=== PATIENT | male | born 1950 | race African-American/Black ===

== ENCOUNTER 2018-12-21 09:58 | Inpatient (IN) | payer MEDICARE ==
[~2018-12-21] VITALS: Ht 180.3 cm; Wt 91.2 kg
[~2018-12-21 09:58] MED LIST: ATOR40TA52 PO; GAB100C PO; PANT40T PO; PRIM50TA5 PO; SERT-274 PO; TRIATAB3 PO
[2018-12-21 11:09] LABS: Basophils # (auto) 0 uL; Basophils % (auto) 0.3 % (0.0-2.0); Eosinophils # (auto) 0 uL; Eosinophils % (auto) 0.1 % (0.0-7.0); Hematocrit 47.8 % (41.0-53.0); Hemoglobin 15.6 g/dL (13.5-17.5); Lymphocytes # (auto) 4.6 uL; Lymphocytes % (auto) 25.4 % (10.0-50.0); Mean Corpuscular Hemoglobin 30.5 pg (28.0-32.0); Mean Corpuscular Hgb Conc. 32.7 g/dL (32.0-36.0); Mean Corpuscular Volume 93.1 fL (80.0-100.0); Monocytes # (auto) 0.4 uL; Monocytes % (auto) 2.3 % (0.0-12.0); Neutrophils # (auto) 12.9 uL; Neutrophils % (auto) 71.9 % (37.0-80.0); Nucleated Red Blood Cells % 0.2 %; Platelet Count (auto) 279 10^3/uL (140-450); Red Blood Cells 5.13 10^6/uL (4.5-5.90); Red Cell Distribution Width 14.4 % (11.8-14.3)
[2018-12-21 11:22] LABS: Anion Gap 11 (5-15); Blood Urea Nitrogen 30 mg/dL (7-18); Calcium 9.6 mg/dL (8.5-10.1); Carbon Dioxide 23 mmol/L (21-32); Chloride 103 mmol/L (98-107); Glucose 203 mg/dL (74-106); Potassium 4.7 mmol/L (3.5-5.1); Sodium 137 mmol/L (136-145)
[2018-12-21 11:28] LABS: Alanine Aminotransferase 30 U/L (16-61); Alkaline Phosphatase 153 U/L (45-117); Aspartate Aminotransferase 17 U/L (15-37); BUN/Creatinine Ratio 18.9; Bilirubin, Total 0.8 mg/dL (0.2-1.0); GFR African American 56 mL/min; GFR Non-African American 47 mL/min; Total Protein 8.5 g/dL (6.4-8.2)
[2018-12-21 11:34] LABS: INR 0.98 (0.9-1.15)
[2018-12-21] MEDS ORDERED: ONDANSETRON HCL 4 MG/2 ML VIAL ONE (11:55)
[2018-12-21] MEDS ORDERED: ONDANSETRON HCL 4 MG/2 ML VIAL IV ONE (12:15)
[2018-12-21 12:18] LABS: Urine Bacteria NONE SEEN /hpf (None Seen); Urine Blood 3+ /uL (Negative); Urine Specific Gravity 1.019 (1.001-1.035); Urine WBC 1915 /hpf (0 - 3); Urine WBC Clumps PRESENT /hpf (None Seen)
[2018-12-21] MEDS ORDERED: SODIUM CHLORIDE 0.9% 1,000 ML IV SCH (12:59)
[2018-12-21] MEDS ORDERED: DEXTROSE (50%) 50ML SYRG IV PRN (13:00)
[2018-12-21] MEDS ORDERED: SODIUM CHLORIDE 0.9% 1,000 ML IV ONE (13:00)
[2018-12-21] MEDS ORDERED: hydrALAZINE HCL 20 MG/ML VL IV PRN (13:00)
[2018-12-21] MEDS ORDERED: MORPHINE SULF INJ 2 MG/ML SYRINGE 1ML IV PRN ×2 (13:00)
[2018-12-21] MEDS ORDERED: NITROGLYCERIN 0.4 MG SL TAB SL PRN (13:00)
[2018-12-21] MEDS ORDERED: ACETAMINOPHEN 500 MG TAB PO PRN (13:00)
[2018-12-21] MEDS ORDERED: ENOXAPARIN SOD 40 MG/0.4 ML SYRINGE SC ONE (13:30)
[2018-12-21] MEDS ORDERED: cefTRIAXone 1GM/50ML D5W 50 ML IV ONE (13:30)
[2018-12-21] MEDS ORDERED: SERTRALINE HCL 50 MG TAB PO ONE (13:30)
[2018-12-21] MEDS ORDERED: DOCUSATE SOD 100 MG CAP PO ONE (13:30)
[2018-12-21] MEDS: GABAPENTIN 100 MG CAP PO SCH ×2 (13:54→21:05)
[2018-12-21] MEDS: BACLOFEN 10 MG TAB PO SCH ×2 (13:54→21:04)
[2018-12-21] MEDS: SODIUM CHLORIDE 0.9% 1,000 ML IV SCH ×2 (13:54→22:38)
[2018-12-21] MEDS ORDERED: PROCHLORPERAZINE EDISYLATE 5 MG/ML 2ML VIAL IV ONE (14:45)
[2018-12-21] MEDS: LORazepam 2MG/ML-1ML VIAL IV PRN (15:01)
[2018-12-21] MEDS ORDERED: LIDOCAINE 2% JELLY 11ml (GLYDO) ONE (16:02)
[2018-12-21] MEDS ORDERED: LIDOCAINE 2% JELLY 11ml (GLYDO) UR ONE (16:30)
[2018-12-21 17:00] VITALS: BP 155/67
--- NOTE | 2018-12-21 17:10 | NUR ---
Telemetry admit from ER CARLOS NICOLE admitted to Telemetry unit after SBAR received. Patient oriented to KRISTY CARR, RN primary RN, unit, room, bed, and unit policies regarding patient care and visiting hours. Patient now on continuous telemetry monitoring, tele box #[id number] and telemetry reading on arrival to unit is SR 92 with first degree AV block and elevated T wave. Patient has continuous bladder irrigation running. Patient placed on bedside oxygen, weighed by bedscale and encouraged to call if they need something. All questions and concerns addressed, patient verbalized understanding.
[2018-12-21] MEDS ORDERED: HYDR-4833 PO (17:40)
[2018-12-21] MEDS ORDERED: GABA300C10 PO (17:40)
[2018-12-21] MEDS ORDERED: ATOR40TA52 PO (17:40)
[2018-12-21] MEDS ORDERED: TRIA75TA55 PO (17:40)
[2018-12-21] MEDS ORDERED: BACL10TA PO (17:40)
[2018-12-21] MEDS ORDERED: LISI40TA PO (17:40)
[2018-12-21] MEDS ORDERED: SERT-274 PO (17:40)
[2018-12-21] MEDS ORDERED: METF-370 PO (17:40)
[2018-12-21 17:46] VITALS: BP 155/67
[2018-12-21] MEDS: ACCU-CHEK COMFORT CURVE STRIP VI SCH ×2 (18:01→21:18)
[2018-12-21] MEDS: InsuLIN REG 1unit/0.01ml Soln (100units/ml) SC SCH ×2 (18:02→21:16)
[2018-12-21] MEDS: ONDANSETRON HCL 4 MG/2 ML VIAL IV PRN (18:24)
--- NOTE | 2018-12-21 19:53 | NUR ---
received pt from day rn poc reviewed
[2018-12-21] MEDS: HYDROcodone-ACET 5/325MG TAB PO PRN (20:24)
--- NOTE | 2018-12-21 20:30 | NUR ---
cbi continue no s/s of hematuria or clots
[2018-12-21] MEDS: DOCUSATE SOD 100 MG CAP PO SCH (21:05)
[2018-12-21] MEDS: ATORVASTATIN 20 MG TAB PO SCH (21:05)
[2018-12-21] MEDS: PANTOPRAZOLE 40 MG TAB PO SCH (21:05)
--- NOTE | 2018-12-21 21:20 | NUR ---
pt c/o hiccups hospitalist paged for orders
[2018-12-21 22:00] VITALS: BP 134/48
[2018-12-21] MEDS ORDERED: chlorproMAZINE HCL 25 MG TAB PO ONE (22:45)
--- NOTE | 2018-12-21 22:50 | NUR ---
orders received from hospitalist for pts c/o hiccups
--- NOTE | 2018-12-22 02:30 | NUR ---
awoke resp even and unlabored, cbi continue no s/s of hematuria, no clots, urine clear
[2018-12-22] MEDS: ONDANSETRON HCL 4 MG/2 ML VIAL IV PRN ×2 (04:29→10:20)
[2018-12-22 04:45] VITALS: BP 122/52
[2018-12-22] MEDS: GABAPENTIN 100 MG CAP PO SCH ×3 (05:21→21:33)
[2018-12-22] MEDS: ACCU-CHEK COMFORT CURVE STRIP VI SCH ×4 (05:27→21:35)
[2018-12-22] MEDS: BACLOFEN 10 MG TAB PO SCH ×3 (06:38→21:32)
[2018-12-22] MEDS: SODIUM CHLORIDE 0.9% 1,000 ML IV SCH ×3 (06:39→21:31)
[2018-12-22] MEDS: InsuLIN REG 1unit/0.01ml Soln (100units/ml) SC SCH ×4 (06:44→21:34)
--- NOTE | 2018-12-22 06:59 | NUR ---
no s/s of hematuria during the night will continue to monitor
--- NOTE | 2018-12-22 07:00 | NUR ---
report given to am nurse poc reviewed
--- NOTE | 2018-12-22 07:15 | NUR ---
Open Shift Note Received report on patient, awake and lying in bed. Patient shows no signs of distress at this time. Patient states he felt nauseous when he first sat up, but no longer feels nauseous. Discussed POC with patient and plans to continue CBI. Patient verbalized understanding. Bed in lowest lowest locked position, side rails up x2 and call light within reach. Will continue to monitor.
[2018-12-22 10:02] VITALS: BP 138/56
[2018-12-22] MEDS: ENOXAPARIN SOD 40 MG/0.4 ML SYRINGE SC SCH (10:20)
[2018-12-22] MEDS: SERTRALINE HCL 50 MG TAB PO SCH (10:21)
[2018-12-22] MEDS: DOCUSATE SOD 100 MG CAP PO SCH ×2 (10:21→21:32)
[2018-12-22] MEDS: PANTOPRAZOLE 40 MG TAB PO SCH ×2 (10:21→21:33)
[2018-12-22] MEDS: cefTRIAXone 1GM/50ML D5W 50 ML IV SCH (10:34)
--- NOTE | 2018-12-22 11:45 | NUR ---
Paged Dr Cramer Paged Dr Cramer to inform him that Dr Koo would like to DC CBI. Dr Cramer and Kathy stated to clamp the CBI but keep the lane in. Kathy stated the lane can be removed tomorrow if patient tolerating. Dr Cramer stated for patient to follow up with urology in one week. Order read back and verified.
[2018-12-22 12:44] VITALS: BP 134/53
[2018-12-22] MEDS: LORazepam 2MG/ML-1ML VIAL IV PRN (15:31)
[2018-12-22 16:30] VITALS: BP 115/52
--- NOTE | 2018-12-22 17:02 | NUR ---
Called Lab Called lab to inform them of Dr Preciado's communication order for labs in the morning. Lab stated she will place the order.
--- NOTE | 2018-12-22 18:53 | NUR ---
End of Shift Endorsed care to [facility] nurse Mary. Patient shows no signs of distress at this time.
--- NOTE | 2018-12-22 19:44 | NUR ---
RECEIVED PT FROM DAY RN POC REVIEWED
--- NOTE | 2018-12-22 21:28 | NUR ---
C/O BACK PAIN 07/27, MED GIVEN F/C URINE CLEAR AT THIS TIME , SMALL CLOT NOTICED
[2018-12-22] MEDS: ATORVASTATIN 20 MG TAB PO SCH (21:32)
[2018-12-22 21:40] VITALS: BP 109/47
[2018-12-22] MEDS: HYDROcodone-ACET 5/325MG TAB PO PRN (23:09)
--- NOTE | 2018-12-23 01:29 | NUR ---
resting with eyes closed resp even and unlabored urine output clear no clots, call light within reach
[2018-12-23 05:03] VITALS: BP 128/45
[2018-12-23] MEDS: BACLOFEN 10 MG TAB PO SCH ×3 (05:59→21:48)
[2018-12-23] MEDS: SODIUM CHLORIDE 0.9% 1,000 ML IV SCH ×3 (05:59→22:56)
[2018-12-23] MEDS: GABAPENTIN 100 MG CAP PO SCH ×3 (06:05→21:48)
[2018-12-23] MEDS: ACCU-CHEK COMFORT CURVE STRIP VI SCH ×4 (06:05→21:53)
[2018-12-23] MEDS: InsuLIN REG 1unit/0.01ml Soln (100units/ml) SC SCH ×4 (06:06→21:59)
--- NOTE | 2018-12-23 06:34 | NUR ---
awoke am care given denies pain or discomfort, urine clear all night will continue to monitor
--- NOTE | 2018-12-23 06:47 | NUR ---
report given to am nurse poc reviewed
--- NOTE | 2018-12-23 07:42 | NUR ---
PATIENT ROUNDS PATIENT LYING IN BED, NO DISTRESS NOTED, BED IN LOWEST POSITION SIDE RAILS UP X2 CALL LIGHT WITHIN REACH. PATIENT ENCOURAGED TO CALL IF HE NEEDS ANYTHING.
[2018-12-23 08:34] VITALS: BP 140/67
[2018-12-23] MEDS: DOCUSATE SOD 100 MG CAP PO SCH ×2 (09:28→21:48)
[2018-12-23] MEDS: cefTRIAXone 1GM/50ML D5W 50 ML IV SCH (09:28)
[2018-12-23] MEDS: SERTRALINE HCL 50 MG TAB PO SCH (09:28)
[2018-12-23] MEDS: PANTOPRAZOLE 40 MG TAB PO SCH ×2 (09:28→21:48)
[2018-12-23] MEDS: ENOXAPARIN SOD 40 MG/0.4 ML SYRINGE SC SCH (09:28)
--- NOTE | 2018-12-23 10:55 | NUR ---
PATIENT OFF UNIT FOR BONE SCAN
--- NOTE | 2018-12-23 11:04 | NUR ---
DR RIVER IN TO SEE PATIENT MD UPDATED THAT PATIENT WAS OFF UNIT FOR BONE SCAN.
--- NOTE | 2018-12-23 11:47 | NUR ---
PATIENT BACK ON UNIT
[2018-12-23 13:00] VITALS: BP 117/59
--- NOTE | 2018-12-23 13:30 | NUR ---
MD/FAMILY PATIENTS SEEMA AT BEDSIDE-WANTING UPDATE ON SCAN THAT WAS DONE TODAY-I INFORMED HER THAT I WILL CALL DOCTOR RIVER AND SEE IF HE IS AVAILABLE TO COME BACK TO UPDATE THEM ON RESULTS. PER DR RIVER HE IS ALREADY DONE FOR THE DAY AND WILL BE IN TOMORROW MORNING AROUND 10:00, PLAN FOR DISCHARGE TOMORROW-PATIENT AND PATIENTS HAVE BEEN UPDATED, SEEMA STATED SHE WILL IN BACK TOMORROW MORNING.
[2018-12-23] MEDS: ONDANSETRON HCL 4 MG/2 ML VIAL IV PRN (13:37)
[2018-12-23 17:21] VITALS: BP 148/67
--- NOTE | 2018-12-23 19:41 | NUR ---
Opening Shift Note Received report and assumed care of patient. Patient is awake and alert with no signs or symptoms of distress noted. Instructed patient on plan of care and to call for assistance as needed, will continue to monitor.
[2018-12-23 20:00] VITALS: BP 157/80
--- NOTE | 2018-12-23 20:55 | NUR ---
IV Removal/Insertion Patient removed IV, catheter tip intact, applied pressure dressing to site. Patient tolerated well. NOTE: Inserted 22g IV to Left hand.
[2018-12-23] MEDS: ATORVASTATIN 20 MG TAB PO SCH (21:48)
[2018-12-23 22:00] VITALS: BP 157/80
[2018-12-24 05:00] VITALS: BP 123/57
--- NOTE | 2018-12-24 05:00 | NUR ---
IV Removal/Insertion Patient removed 22g IV to the Left hand, catheter tip intact, applied pressure dressing to site. Patient tolerated well. NOTE: Inserted 22g to the Right hand.
[2018-12-24] MEDS: SODIUM CHLORIDE 0.9% 1,000 ML IV SCH (06:00)
[2018-12-24] MEDS: ONDANSETRON HCL 4 MG/2 ML VIAL IV PRN (06:10)
[2018-12-24] MEDS: BACLOFEN 10 MG TAB PO SCH (06:10)
[2018-12-24] MEDS: GABAPENTIN 100 MG CAP PO SCH (06:10)
[2018-12-24] MEDS: ACCU-CHEK COMFORT CURVE STRIP VI SCH ×2 (06:17→11:30)
[2018-12-24] MEDS: InsuLIN REG 1unit/0.01ml Soln (100units/ml) SC SCH ×2 (06:23→12:33)
--- NOTE | 2018-12-24 07:03 | NUR ---
Patient is currently sleeping. No signs or symptoms of distress noted. Call light is within reach. Will endorse care to AM nurse.
--- NOTE | 2018-12-24 07:30 | NUR ---
Opening Shift Note Assumed care of patient, awake, alert, and oriented. No S/S of distress/SOB or pain. Bed in low/locked position, bed rails upx2. Instructed on POC and to call for assist PRN with call light within reach. Will continue to monitor for changes Q1hr and PRN.
[2018-12-24 07:59] VITALS: BP 119/65
[2018-12-24] MEDS: cefTRIAXone 1GM/50ML D5W 50 ML IV SCH (08:41)
[2018-12-24] MEDS: DOCUSATE SOD 100 MG CAP PO SCH (08:42)
[2018-12-24] MEDS: ENOXAPARIN SOD 40 MG/0.4 ML SYRINGE SC SCH (08:42)
[2018-12-24] MEDS: PANTOPRAZOLE 40 MG TAB PO SCH (08:42)
[2018-12-24] MEDS: SERTRALINE HCL 50 MG TAB PO SCH (08:42)
[2018-12-24 10:27] LABS: Immunoglobulin G, Serum 710 mg/dL (700-1600)
--- NOTE | 2018-12-24 10:30 | NUR ---
MD ROUNDS DR Fanny RIVER AT BEDSIDE DISCUSSING POC WITH PATIENT. ALL QUESTIONS/CONCERNS ANSWERED. NEW ORDERS RECIEVED/CARRIED OUT. WILL CONTINUE TO MONITOR.
[2018-12-24 13:00] VITALS: BP 128/57
--- NOTE | 2018-12-24 13:50 | NUR ---
Discharge instructions given as ordered. Encourage to follow up with PMD as instructed. All questions and concerns addressed. Patient verbalized understanding. IV removed with catheter intact, pressure dressing applied, lane catheter with leg bag intact per MD order. Telemetry unit returned to ICU. Patient taken to vehicle via wheelchair with all personal belongings, accompanied by staff and family member. No distress noted at time of departure.
== END 2018-12-24 13:45 | disposition home or self-care (01) | DRG 871 ==
LOC: ER 10:04 → TELE 10:05 → TELE-WESTW 16:55 → UNDODISIN 17:13 → TELE-WESTW 17:23
PROVIDERS: ADMIT Nurse Practitioner Acute Care; ATTEND Family Medicine
DX: A41.9 Sepsis, unspecified organism (principal); N17.0 Acute kidney failure with tubular necrosis; J44.1 Chronic obstructive pulmonary disease with (acute) exacerbation; C91.10 Chronic lymphocytic leukemia of B-cell type not having achieved remission; N30.01 Acute cystitis with hematuria; C61 Malignant neoplasm of prostate; E11.9 Type 2 diabetes mellitus without complications; F32.9 Major depressive disorder, single episode, unspecified; E78.5 Hyperlipidemia, unspecified; I10 Essential (primary) hypertension; B96.1 Klebsiella pneumoniae [K. pneumoniae] as the cause of diseases classified elsewhere; G89.29 Other chronic pain; M54.9 Dorsalgia, unspecified; F17.210 Nicotine dependence, cigarettes, uncomplicated; Z90.79 Acquired absence of other genital organ(s); Z79.84 Long term (current) use of oral hypoglycemic drugs; Z85.46 Personal history of malignant neoplasm of prostate; Z79.899 Other long term (current) drug therapy; Z79.891 Long term (current) use of opiate analgesic; Z88.1 Allergy status to other antibiotic agents
CPT/HCPCS: 36415; 51702; 71250; 74176; 78306; 80053; 81001; 82784; 82962; 83615; 83880; 84154; 84484; 85025; 85379; 85610; 85730; 87086; 87088; 87186; 93005; 96365; 96372; 96375; G0378; J0696; J1815; J2405

== ENCOUNTER 2020-08-19 15:42 | Emergency (ER) | payer MEDICARE ==
[~2020-08-19] VITALS: Ht 180.3 cm; Wt 83.9 kg
[~2020-08-19 15:42] MED LIST changes: +BACL10TA PO; -GAB100C PO; +GABA300C10 PO; +HYDR-4833 PO; +LISI40TA11 PO; +METF-370 PO; -PANT40T PO; -PRIM50TA5 PO; -SERT-274 PO; +SERT50TA19 PO; +TRIA75TA55 PO; -TRIATAB3 PO
[2020-08-19 17:18] LABS: Basophils # (auto) 0 10 ^3/uL (0-0.2); Basophils % (auto) 0.4 % (0.0-2.0); Eosinophils # (auto) 0.2 10 ^3/uL (0-0.8); Eosinophils % (auto) 1.7 % (0.0-7.0); Hematocrit 36.1 % (41.0-53.0); Hemoglobin 12.1 g/dL (13.5-17.5); Lymphocytes # (auto) 5.1 10 ^3/uL (0.4-5.4); Lymphocytes % (auto) 39.5 % (10.0-50.0); Mean Corpuscular Hemoglobin 30.8 pg (28.0-32.0); Mean Corpuscular Hgb Conc. 33.5 g/dL (32.0-36.0); Mean Corpuscular Volume 91.8 fL (80.0-100.0); Monocytes # (auto) 0.6 10 ^3/uL (0-1.3); Monocytes % (auto) 4.4 % (0.0-12.0); Nucleated Red Blood Cells % 0.3 %; Red Blood Cells 3.93 10^6/uL (4.5-5.90); Red Cell Distribution Width 14.9 % (11.8-14.3); White Blood Cell 12.9 10^3/uL (4.4-10.8)
[2020-08-19 17:35] LABS: Alanine Aminotransferase 17 U/L (16-61); Albumin 3.7 g/dL (3.4-5.0); Anion Gap 5 (5-15); Aspartate Aminotransferase 10 U/L (15-37); BUN/Creatinine Ratio 24.8; Blood Urea Nitrogen 41 mg/dL (7-18); Calcium 9.3 mg/dL (8.5-10.1); Carbon Dioxide 24 mmol/L (21-32); Chloride 110 mmol/L (98-107); GFR African American 54 mL/min; GFR Non-African American 44 mL/min; Glucose 126 mg/dL (74-106); Potassium 4.8 mmol/L (3.5-5.1); Sodium 139 mmol/L (136-145)
[2020-08-19 17:40] LABS: Alkaline Phosphatase 99 U/L (45-117); Bilirubin, Total 0.1 mg/dL (0.2-1.0); Total Protein 7.9 g/dL (6.4-8.2)
[2020-08-19] MEDS ORDERED: ACETAMINOPHEN 325 MG TAB PO ONE (20:30)
[2020-08-19 21:00] VITALS: BP 130/67
== END 2020-08-20 01:18 | disposition home or self-care (01) ==
LOC: ER 15:42
DX: B34.9 Viral infection, unspecified (principal); R07.89 Other chest pain; F17.210 Nicotine dependence, cigarettes, uncomplicated; I12.9 Hypertensive chronic kidney disease with stage 1 through stage 4 chronic kidney disease, or unspecified chronic kidney disease; E11.22 Type 2 diabetes mellitus with diabetic chronic kidney disease; N18.9 Chronic kidney disease, unspecified; Z85.46 Personal history of malignant neoplasm of prostate; Z79.84 Long term (current) use of oral hypoglycemic drugs; Z79.899 Other long term (current) drug therapy
CPT/HCPCS: 36415; 71045; 80053; 84484; 85025; 85049; 93005

== ENCOUNTER 2020-11-13 12:42 | Emergency (ER) | payer MEDICARE ==
[~2020-11-13] VITALS: Ht 180.3 cm; Wt 80.3 kg
[2020-11-13] MEDS ORDERED: FLEET ENEMA(ADULT) 135 ML PR ONE (13:15)
[2020-11-13 13:24] LABS: Basophils # (auto) 0 10 ^3/uL (0-0.2); Basophils % (auto) 0.2 % (0.0-2.0); Eosinophils # (auto) 0.1 10 ^3/uL (0-0.8); Eosinophils % (auto) 0.6 % (0.0-7.0); Hematocrit 37.3 % (41.0-53.0); Hemoglobin 11.9 g/dL (13.5-17.5); Lymphocytes # (auto) 3.1 10 ^3/uL (0.4-5.4); Lymphocytes % (auto) 22.2 % (10.0-50.0); Mean Corpuscular Hemoglobin 30.3 pg (28.0-32.0); Mean Corpuscular Hgb Conc. 31.9 g/dL (32.0-36.0); Mean Corpuscular Volume 94.7 fL (80.0-100.0); Monocytes # (auto) 0.5 10 ^3/uL (0-1.3); Monocytes % (auto) 3.5 % (0.0-12.0); Neutrophils # (auto) 10.1 10 ^3/uL (1.6-8.6); Neutrophils % (auto) 73.5 % (37.0-80.0); Nucleated Red Blood Cells % 0.1 %; Red Blood Cells 3.94 10^6/uL (4.5-5.90); Red Cell Distribution Width 15.4 % (11.8-14.3); White Blood Cell 13.7 10^3/uL (4.4-10.8)
[2020-11-13 13:42] LABS: Albumin 3.5 g/dL (3.4-5.0); Calcium 9.2 mg/dL (8.5-10.1); Potassium 4.2 mmol/L (3.5-5.1)
[2020-11-13 13:45] LABS: BUN/Creatinine Ratio 14.7; Bilirubin, Total 0.4 mg/dL (0.2-1.0); Total Protein 7.1 g/dL (6.4-8.2)
[2020-11-13 15:09] VITALS: BP 128/72
== END 2020-11-13 15:11 | disposition home or self-care (01) ==
LOC: ER 12:42
DX: K59.00 Constipation, unspecified (principal); I12.9 Hypertensive chronic kidney disease with stage 1 through stage 4 chronic kidney disease, or unspecified chronic kidney disease; E11.22 Type 2 diabetes mellitus with diabetic chronic kidney disease; N18.9 Chronic kidney disease, unspecified; E78.5 Hyperlipidemia, unspecified; J44.9 Chronic obstructive pulmonary disease, unspecified; F17.210 Nicotine dependence, cigarettes, uncomplicated; Z79.84 Long term (current) use of oral hypoglycemic drugs; Z79.899 Other long term (current) drug therapy; Z88.1 Allergy status to other antibiotic agents
CPT/HCPCS: 36415; 74176; 80053; 83690; 85025

== ENCOUNTER 2021-03-11 10:15 | Inpatient (IN) | payer MEDICARE ==
[~2021-03-11] VITALS: Ht 180.3 cm; Wt 75.9 kg
[2021-03-11] MEDS ORDERED: SODIUM CHLORIDE 0.9% 500 ML IV ONE ×2 (10:45→23:15)
[2021-03-11 12:20] LABS: Basophils # (auto) 0.2 10 ^3/uL (0-0.2); Basophils % (auto) 1.5 % (0.0-2.0); Eosinophils # (auto) 0.3 10 ^3/uL (0-0.8); Eosinophils % (auto) 2.2 % (0.0-7.0); Hemoglobin 14.8 g/dL (13.5-17.5); Lymphocytes # (auto) 1.3 10 ^3/uL (0.4-5.4); Lymphocytes % (auto) 10.9 % (10.0-50.0); Mean Corpuscular Hemoglobin 29.6 pg (28.0-32.0); Mean Corpuscular Hgb Conc. 32.2 g/dL (32.0-36.0); Monocytes # (auto) 0.4 10 ^3/uL (0-1.3); Monocytes % (auto) 3.6 % (0.0-12.0); Neutrophils % (auto) 81.8 % (37.0-80.0); Nucleated Red Blood Cells % 0.2 %; Red Cell Distribution Width 14.2 % (11.8-14.3); White Blood Cell 12.2 10^3/uL (4.4-10.8)
[2021-03-11 12:52] LABS: Albumin 3.6 g/dL (3.4-5.0); Calcium 10.1 mg/dL (8.5-10.1); Magnesium 3.7 mg/dL (1.6-2.6)
[2021-03-11 13:00] LABS: BUN/Creatinine Ratio 28.1; Bilirubin, Total 0.4 mg/dL (0.2-1.0); Total Protein 8.6 g/dL (6.4-8.2)
[2021-03-11 13:04] LABS: Potassium 5.7 mmol/L (3.5-5.1)
[2021-03-11] MEDS ORDERED: SODIUM BICARBONATE 8.4 % INJ 50ML VIAL IV ONE (13:15)
[2021-03-11] MEDS ORDERED: CALCIUM GLUC 1,000mg/50ml-NS 50 ML IV ONE (13:15)
[2021-03-11 14:11] LABS: Urine Bacteria FEW /hpf (None Seen); Urine Blood Negative /uL (Negative); Urine Hyaline Cast FEW /lpf (0 - 2); Urine Specific Gravity 1.016 (1.001-1.035); Urine WBC 2 /hpf (0 - 3)
[2021-03-11] MEDS ORDERED: ONDANSETRON HCL 4 MG/2 ML VIAL IV ONE (17:30)
[2021-03-11 22:56] LABS: Albumin 3.7 g/dL (3.4-5.0); Calcium 10.3 mg/dL (8.5-10.1)
[2021-03-11 22:59] LABS: Bilirubin, Total 0.6 mg/dL (0.2-1.0); Total Protein 8.6 g/dL (6.4-8.2)
[2021-03-11] MEDS ORDERED: DEXTROSE (50%) 50ML SYRG IV PRN (23:15)
[2021-03-11] MEDS ORDERED: ACETAMINOPHEN 325 MG TAB PO PRN (23:15)
[2021-03-11] MEDS ORDERED: MORPHINE SULFATE INJECTION 2 MG/ML SYRG IV PRN (23:15)
[2021-03-11] MEDS ORDERED: NITROGLYCERIN 0.4 MG SL TAB SL PRN (23:15)
[2021-03-11] MEDS ORDERED: SODIUM ZIRCONIUM CYCL 10 GM PAK PO ONE (23:15)
[2021-03-12] MEDS: ACCU-CHEK COMFORT CURVE STRIP VI SCH ×4 (06:27→21:39)
[2021-03-12] MEDS: InsuLIN REG 1unit/0.01ml Soln (100units/ml) SC SCH ×4 (06:28→21:55)
[2021-03-12 06:55] LABS: Eosinophils # (auto) 0 10 ^3/uL (0-0.8)
[2021-03-12 07:02] LABS: Basophils # (auto) 0 10 ^3/uL (0-0.2); Basophils % (auto) 0.3 % (0.0-2.0); Eosinophils % (auto) 0.3 % (0.0-7.0); Hematocrit 42.3 % (41.0-53.0); Lymphocytes # (auto) 4.6 10 ^3/uL (0.4-5.4); Lymphocytes % (auto) 33.8 % (10.0-50.0); Mean Corpuscular Hemoglobin 30.2 pg (28.0-32.0); Mean Corpuscular Hgb Conc. 33.1 g/dL (32.0-36.0); Mean Corpuscular Volume 91.3 fL (80.0-100.0); Monocytes # (auto) 0.8 10 ^3/uL (0-1.3); Monocytes % (auto) 5.9 % (0.0-12.0); Neutrophils # (auto) 8.1 10 ^3/uL (1.6-8.6); Neutrophils % (auto) 59.7 % (37.0-80.0); Nucleated Red Blood Cells % 0.2 %; Red Blood Cells 4.64 10^6/uL (4.5-5.90); Red Cell Distribution Width 13.8 % (11.8-14.3); White Blood Cell 13.5 10^3/uL (4.4-10.8)
[2021-03-12 07:11] LABS: Potassium 5.5 mmol/L (3.5-5.1)
[2021-03-12 07:18] LABS: Albumin 3.5 g/dL (3.4-5.0); BUN/Creatinine Ratio 30.1; Bilirubin, Total 0.4 mg/dL (0.2-1.0); Total Protein 8.1 g/dL (6.4-8.2)
[2021-03-12] MEDS ORDERED: SODIUM ZIRCONIUM CYCL 10 GM PAK PO ONE (09:00)
[2021-03-12] MEDS: SODIUM CHLORIDE 0.9% 1,000 ML IV SCH ×2 (09:49→11:07)
[2021-03-12] MEDS ORDERED: TRIAMTERENE/HCTZ 75/50MG TABLET PO SCH (10:00)
[2021-03-12] MEDS: SODIUM ZIRCONIUM CYCL 10 GM PAK PO SCH ×2 (13:35→22:00)
[2021-03-12 17:35] LABS: Protein, Urine 33.2 mg/dL (0.0-11.9)
[2021-03-12] MEDS: ATORVASTATIN 20 MG TAB PO SCH (21:38)
[2021-03-12 22:00] VITALS: BP 129/66
[2021-03-12 22:54] VITALS: BP 129/66
[2021-03-12] MEDS ORDERED: OXY5T PO (23:44)
[2021-03-12] MEDS ORDERED: BICA50TA13 PO (23:44)
[2021-03-13] MEDS: SODIUM CHLORIDE 0.9% 1,000 ML IV SCH ×3 (01:00→17:00)
[2021-03-13] MEDS: SODIUM ZIRCONIUM CYCL 10 GM PAK PO SCH (05:15)
[2021-03-13] MEDS: ACCU-CHEK COMFORT CURVE STRIP VI SCH ×4 (06:37→21:55)
[2021-03-13] MEDS: InsuLIN REG 1unit/0.01ml Soln (100units/ml) SC SCH ×4 (06:43→21:55)
[2021-03-13 07:32] LABS: Potassium 4.7 mmol/L (3.5-5.1)
[2021-03-13 07:46] LABS: BUN/Creatinine Ratio 38.7; Calcium 9.3 mg/dL (8.5-10.1); Magnesium 2.2 mg/dL (1.6-2.6); Phosphorus 4.2 mg/dL (2.5-4.90)
[2021-03-13 09:00] VITALS: BP 157/64
[2021-03-13] MEDS: LOPERAMIDE HCL 2 MG CAP PO PRN ×2 (11:07→22:00)
[2021-03-13 13:00] VITALS: BP 129/58
[2021-03-13 17:00] VITALS: BP 9/74
[2021-03-13] MEDS: ATORVASTATIN 20 MG TAB PO SCH (21:55)
[2021-03-13 22:00] VITALS: BP 130/78
[2021-03-14] MEDS: SODIUM CHLORIDE 0.9% 1,000 ML IV SCH ×3 (01:00→17:00)
[2021-03-14] MEDS: LOPERAMIDE HCL 2 MG CAP PO PRN ×2 (01:20→21:21)
[2021-03-14 05:00] VITALS: BP 104/68
[2021-03-14] MEDS: ONDANSETRON HCL 4 MG/2 ML VIAL IV PRN ×2 (05:00→21:10)
[2021-03-14] MEDS: ACCU-CHEK COMFORT CURVE STRIP VI SCH ×4 (06:56→21:10)
[2021-03-14] MEDS: InsuLIN REG 1unit/0.01ml Soln (100units/ml) SC SCH ×4 (06:57→21:12)
[2021-03-14 07:53] LABS: Potassium 4.2 mmol/L (3.5-5.1)
[2021-03-14 08:08] LABS: BUN/Creatinine Ratio 47.9; Calcium 9.5 mg/dL (8.5-10.1); Magnesium 2.4 mg/dL (1.6-2.6); Phosphorus 3.2 mg/dL (2.5-4.90)
[2021-03-14 09:00] VITALS: BP 147/82
[2021-03-14 13:00] VITALS: BP 128/64
[2021-03-14 17:00] VITALS: BP 127/88
[2021-03-14] MEDS: ATORVASTATIN 20 MG TAB PO SCH (21:11)
[2021-03-14 22:00] VITALS: BP 120/65
[2021-03-15] MEDS: SODIUM CHLORIDE 0.9% 1,000 ML IV SCH ×2 (01:00→09:00)
[2021-03-15 05:00] VITALS: BP 113/52
[2021-03-15] MEDS: ACCU-CHEK COMFORT CURVE STRIP VI SCH ×2 (05:52→11:28)
[2021-03-15] MEDS: InsuLIN REG 1unit/0.01ml Soln (100units/ml) SC SCH ×2 (05:56→18:52)
[2021-03-15 07:20] VITALS: BP 105/58
[2021-03-15 07:36] LABS: Potassium 4.3 mmol/L (3.5-5.1)
[2021-03-15 08:00] LABS: BUN/Creatinine Ratio 37.5; Calcium 9.1 mg/dL (8.5-10.1)
[2021-03-15 12:40] VITALS: BP 108/56
== END 2021-03-15 18:40 | disposition home or self-care (01) | DRG 682 ==
LOC: ER 10:15 → TELE 23:07 → TELE-WESTW 03-12 19:10
PROVIDERS: ADMIT Nurse Practitioner; ATTEND Internal Medicine
DX: N17.0 Acute kidney failure with tubular necrosis (principal); U07.1 COVID-19; E87.5 Hyperkalemia; C61 Malignant neoplasm of prostate; G30.9 Alzheimer's disease, unspecified; I12.9 Hypertensive chronic kidney disease with stage 1 through stage 4 chronic kidney disease, or unspecified chronic kidney disease; E11.22 Type 2 diabetes mellitus with diabetic chronic kidney disease; N18.30 Chronic kidney disease, stage 3 unspecified; E78.5 Hyperlipidemia, unspecified; F02.80 Dementia in other diseases classified elsewhere, unspecified severity, without behavioral disturbance, psychotic disturbance, mood disturbance, and anxiety; F17.210 Nicotine dependence, cigarettes, uncomplicated; J44.9 Chronic obstructive pulmonary disease, unspecified; Z88.0 Allergy status to penicillin; Z83.3 Family history of diabetes mellitus; Z82.49 Family history of ischemic heart disease and other diseases of the circulatory system
CPT/HCPCS: 36415; 71045; 76775; 80048; 80053; 81001; 82140; 82306; 82570; 82962; 83036; 83735; 83935; 83970; 84100; 84156; 84300; 84484; 85025; 87426; 93005; 96361; 96365; 96375; 99291; G0378; J1815; J2405

== ENCOUNTER 2021-07-03 16:35 | Inpatient (IN) | payer MEDICARE ==
[~2021-07-03] VITALS: Ht 180.3 cm; Wt 81.2 kg
[~2021-07-03 16:35] MED LIST changes: +BICA50TA13 PO
[2021-07-03] MEDS ORDERED: SODIUM CHLORIDE 0.9% 1,000 ML IV ONE (18:00)
[2021-07-03 18:59] LABS: Basophils # (auto) 0.1 10 ^3/uL (0-0.2); Basophils % (auto) 0.4 % (0.0-2.0); Eosinophils # (auto) 0.1 10 ^3/uL (0-0.8); Eosinophils % (auto) 0.6 % (0.0-7.0); Hemoglobin 14.6 g/dL (13.5-17.5); Lymphocytes # (auto) 4.3 10 ^3/uL (0.4-5.4); Lymphocytes % (auto) 33.7 % (10.0-50.0); Mean Corpuscular Volume 94.2 fL (80.0-100.0); Monocytes # (auto) 0.5 10 ^3/uL (0-1.3); Neutrophils # (auto) 7.9 10 ^3/uL (1.6-8.6); Neutrophils % (auto) 61.3 % (37.0-80.0); Nucleated Red Blood Cells % 0.2 %; Red Blood Cells 4.57 10^6/uL (4.5-5.90); Red Cell Distribution Width 14.9 % (11.8-14.3); White Blood Cell 12.9 10^3/uL (4.4-10.8)
[2021-07-03 19:11] LABS: Albumin 3.7 g/dL (3.4-5.0); Calcium 9.2 mg/dL (8.5-10.1); Potassium 3.4 mmol/L (3.5-5.1)
[2021-07-03 19:15] LABS: BUN/Creatinine Ratio 13.5; Bilirubin, Total 0.7 mg/dL (0.2-1.0); Total Protein 7.9 g/dL (6.4-8.2)
[2021-07-03] MEDS ORDERED: SOD CHL 0.9%/ KCL 20MEQ 1,000 ML IV ONE (22:15)
[2021-07-03] MEDS ORDERED: ACETAMINOPHEN 325 MG TAB PO PRN (22:15)
[2021-07-03] MEDS ORDERED: ONDANSETRON HCL 4 MG/2 ML VIAL IV PRN (22:15)
[2021-07-03] MEDS ORDERED: DEXTROSE (50%) 50ML SYRG IV PRN (22:15)
[2021-07-04 06:02] LABS: Basophils # (auto) 0.1 10 ^3/uL (0-0.2); Basophils % (auto) 0.5 % (0.0-2.0); Eosinophils # (auto) 0.1 10 ^3/uL (0-0.8); Eosinophils % (auto) 0.7 % (0.0-7.0); Hematocrit 40.2 % (41.0-53.0); Hemoglobin 13.8 g/dL (13.5-17.5); Lymphocytes # (auto) 5.4 10 ^3/uL (0.4-5.4); Lymphocytes % (auto) 37.5 % (10.0-50.0); Mean Corpuscular Hemoglobin 32.4 pg (28.0-32.0); Mean Corpuscular Hgb Conc. 34.3 g/dL (32.0-36.0); Mean Corpuscular Volume 94.4 fL (80.0-100.0); Monocytes # (auto) 0.6 10 ^3/uL (0-1.3); Monocytes % (auto) 4.5 % (0.0-12.0); Neutrophils # (auto) 8.1 10 ^3/uL (1.6-8.6); Neutrophils % (auto) 56.8 % (37.0-80.0); Nucleated Red Blood Cells % 0.1 %; Red Blood Cells 4.26 10^6/uL (4.5-5.90); Red Cell Distribution Width 15.5 % (11.8-14.3); White Blood Cell 14.3 10^3/uL (4.4-10.8)
[2021-07-04 06:20] LABS: Albumin 3.7 g/dL (3.4-5.0); Calcium 9.1 mg/dL (8.5-10.1); Potassium 3.3 mmol/L (3.5-5.1)
[2021-07-04 06:22] LABS: BUN/Creatinine Ratio 11.7
[2021-07-04 06:24] LABS: Bilirubin, Total 0.6 mg/dL (0.2-1.0); Total Protein 7.9 g/dL (6.4-8.2)
[2021-07-04] MEDS: InsuLIN REG 1unit/0.01ml Soln (100units/ml) SC SCH ×4 (06:57→22:28)
[2021-07-04] MEDS: ACCU-CHEK COMFORT CURVE STRIP VI SCH ×4 (06:58→22:24)
[2021-07-04] MEDS: PANTOPRAZOLE 40 MG TAB PO SCH (10:11)
[2021-07-04] MEDS ORDERED: POTASSIUM CHL 20 Meq TABLET PO ONE (14:00)
[2021-07-04] MEDS: LACTATED RINGER'S 1,000 ML IV SCH (14:45)
[2021-07-04 17:00] VITALS: BP 116/57
[2021-07-04] MEDS ORDERED: levoFLOXacin 500MG 100 ML IV SCH (17:30)
[2021-07-04 21:23] LABS: Urine Bacteria NONE SEEN /hpf (None Seen); Urine Blood TRACE /uL (Negative); Urine Hyaline Cast FEW /lpf (0 - 2); Urine Mucus FEW (None Seen); Urine Specific Gravity 1.012 (1.001-1.035); Urine WBC 67 /hpf (0 - 3)
[2021-07-04] MEDS: ATORVASTATIN 20 MG TAB PO SCH (21:28)
[2021-07-04] MEDS: TEMAZEPAM 15 MG CAP PO PRN (21:28)
[2021-07-04 21:49] LABS: Amphetamine Screen, Urine NEGATIVE (NEGATIVE); Barbiturate Scree,Urine NEGATIVE (NEGATIVE); Benzodiazephine Screen, Urine NEGATIVE (NEGATIVE); Cannabinoid Screen, Urine NEGATIVE (NEGATIVE); Cocaine Screen, Urine NEGATIVE (NEGATIVE); Opiate Scree,Urine NEGATIVE (NEGATIVE); Phencyclidine Screen, Urine NEGATIVE (NEGATIVE)
[2021-07-04 22:00] VITALS: BP 115/61
[2021-07-05] MEDS: LACTATED RINGER'S 1,000 ML IV SCH ×2 (04:32→16:33)
[2021-07-05 05:12] VITALS: BP 109/49
[2021-07-05 05:50] LABS: Potassium 3.9 mmol/L (3.5-5.1)
[2021-07-05 05:53] LABS: Basophils # (auto) 0 10 ^3/uL (0-0.2); Basophils % (auto) 0.4 % (0.0-2.0); Eosinophils # (auto) 0.2 10 ^3/uL (0-0.8); Eosinophils % (auto) 1.5 % (0.0-7.0); Hematocrit 37.8 % (41.0-53.0); Hemoglobin 12.9 g/dL (13.5-17.5); Lymphocytes # (auto) 4.3 10 ^3/uL (0.4-5.4); Lymphocytes % (auto) 41.2 % (10.0-50.0); Mean Corpuscular Hemoglobin 32.2 pg (28.0-32.0); Mean Corpuscular Hgb Conc. 34.2 g/dL (32.0-36.0); Mean Corpuscular Volume 94.3 fL (80.0-100.0); Monocytes # (auto) 0.5 10 ^3/uL (0-1.3); Monocytes % (auto) 5.1 % (0.0-12.0); Neutrophils # (auto) 5.4 10 ^3/uL (1.6-8.6); Neutrophils % (auto) 51.8 % (37.0-80.0); Nucleated Red Blood Cells % 0.3 %; Red Blood Cells 4.01 10^6/uL (4.5-5.90); Red Cell Distribution Width 15.2 % (11.8-14.3); White Blood Cell 10.3 10^3/uL (4.4-10.8)
[2021-07-05 05:55] LABS: BUN/Creatinine Ratio 18.4; Calcium 8.8 mg/dL (8.5-10.1)
[2021-07-05] MEDS: InsuLIN REG 1unit/0.01ml Soln (100units/ml) SC SCH ×4 (07:00→22:05)
[2021-07-05] MEDS: ACCU-CHEK COMFORT CURVE STRIP VI SCH ×4 (07:07→22:05)
[2021-07-05] MEDS: PANTOPRAZOLE 40 MG TAB PO SCH (08:03)
[2021-07-05 09:30] VITALS: BP 120/58
[2021-07-05 13:00] VITALS: BP 106/62
[2021-07-05 22:00] VITALS: BP 106/57
[2021-07-05] MEDS: TEMAZEPAM 15 MG CAP PO PRN (22:01)
[2021-07-05] MEDS: ATORVASTATIN 20 MG TAB PO SCH (22:02)
[2021-07-06 05:00] VITALS: BP 106/64
[2021-07-06] MEDS: LACTATED RINGER'S 1,000 ML IV SCH (06:00)
[2021-07-06] MEDS: InsuLIN REG 1unit/0.01ml Soln (100units/ml) SC SCH ×2 (06:31→12:14)
[2021-07-06] MEDS: ACCU-CHEK COMFORT CURVE STRIP VI SCH ×2 (06:32→12:13)
[2021-07-06 08:18] LABS: BUN/Creatinine Ratio 21.1; Calcium 8.6 mg/dL (8.5-10.1); Potassium 4.2 mmol/L (3.5-5.1)
[2021-07-06 09:00] VITALS: BP 128/63
[2021-07-06] MEDS ORDERED: OMEG300C7 OR (12:49)
[2021-07-06] MEDS ORDERED: TRAZ-181 PO (12:56)
[2021-07-06] MEDS ORDERED: CEPH-322 PO (12:56)
[2021-07-06] MEDS ORDERED: DONE5TAB80 PO (12:56)
[2021-07-06] MEDS ORDERED: GABA300C10 PO (12:56)
[2021-07-06] MEDS ORDERED: SULF400I3 PO (12:56)
[2021-07-06] MEDS ORDERED: LISI40TA11 PO (12:56)
[2021-07-06] MEDS ORDERED: FLUO-125 PO (12:56)
== END 2021-07-06 14:30 | disposition home or self-care (01) | DRG 683 ==
LOC: EDBD 16:35 → ER 16:35 → OVERFLOW 22:02 → CENTRAL 07-04 13:20
PROVIDERS: ADMIT Nurse Practitioner; ATTEND Internal Medicine Nephrology
DX: N17.9 Acute kidney failure, unspecified (principal); R65.10 Systemic inflammatory response syndrome (SIRS) of non-infectious origin without acute organ dysfunction; E86.0 Dehydration; I95.9 Hypotension, unspecified; I12.9 Hypertensive chronic kidney disease with stage 1 through stage 4 chronic kidney disease, or unspecified chronic kidney disease; D72.829 Elevated white blood cell count, unspecified; E11.22 Type 2 diabetes mellitus with diabetic chronic kidney disease; E78.5 Hyperlipidemia, unspecified; E87.6 Hypokalemia; F17.210 Nicotine dependence, cigarettes, uncomplicated; R82.71 Bacteriuria; J44.9 Chronic obstructive pulmonary disease, unspecified; N18.31 Chronic kidney disease, stage 3a; Z85.46 Personal history of malignant neoplasm of prostate; Z90.79 Acquired absence of other genital organ(s); Z80.9 Family history of malignant neoplasm, unspecified; Z82.49 Family history of ischemic heart disease and other diseases of the circulatory system; Z83.3 Family history of diabetes mellitus
CPT/HCPCS: 36415; 71045; 80048; 80053; 80307; 81001; 82962; 84484; 85025; 87040; 87086; 93005; 96361; 96365; G0378; J1815; J1956

== ENCOUNTER 2022-01-22 10:45 | Inpatient (IN) | payer MEDICARE ==
[~2022-01-22] VITALS: Ht 180.3 cm; Wt 82.5 kg
[~2022-01-22 10:45] MED LIST changes: -BACL10TA PO; +DONE5TAB80 PO; -LISI40TA11 PO; +OMEG300C7 OR; +TRAZ-181 PO; -TRIA75TA55 PO
[2022-01-22 11:49] LABS: Basophils # (auto) 0 10 ^3/uL (0-0.2); Basophils % (auto) 0.2 % (0.0-2.0); Eosinophils # (auto) 0 10 ^3/uL (0-0.8); Eosinophils % (auto) 0.1 % (0.0-7.0); Hematocrit 43.2 % (41.0-53.0); Lymphocytes % (auto) 11.2 % (10.0-50.0); Mean Corpuscular Hemoglobin 29.5 pg (28.0-32.0); Mean Corpuscular Hgb Conc. 32.3 g/dL (32.0-36.0); Mean Corpuscular Volume 91.2 fL (80.0-100.0); Monocytes # (auto) 1.1 10 ^3/uL (0-1.3); Monocytes % (auto) 6.3 % (0.0-12.0); Neutrophils % (auto) 82.2 % (37.0-80.0); Red Blood Cells 4.74 10^6/uL (4.5-5.90); Red Cell Distribution Width 14.9 % (11.8-14.3); White Blood Cell 18.2 10^3/uL (4.4-10.8)
[2022-01-22 11:59] LABS: Urine Bacteria MANY /hpf (None Seen); Urine Blood 2+ /uL (Negative); Urine Mucus FEW (None Seen); Urine Specific Gravity 1.022 (1.001-1.035); Urine WBC 85 /hpf (0 - 3); Urine WBC Clumps PRESENT /hpf (None Seen)
[2022-01-22 12:05] LABS: Albumin 3.1 g/dL (3.4-5.0); BUN/Creatinine Ratio 14.3; Potassium 3.7 mmol/L (3.5-5.1)
[2022-01-22 12:08] LABS: Total Protein 6.7 g/dL (6.4-8.2)
[2022-01-22] MEDS ORDERED: HEPARIN SODIUM (PORCINE) 5000 UNITS/ML 1ML VIAL IV ONE (12:30)
[2022-01-22] MEDS ORDERED: AZITHROMYCIN 500MG/ 250ML 250 ML IV ONE (12:30)
[2022-01-22] MEDS ORDERED: SODIUM CHLORIDE 0.9% 1,000 ML IV ONE ×2 (12:30)
[2022-01-22] MEDS ORDERED: cefTRIAXone 1GM/50ML D5W 50 ML IV ONE (12:30)
[2022-01-22] MEDS ORDERED: SODIUM CHLORIDE 0.9% 2,000 ML IV ONE (13:45)
[2022-01-22] MEDS ORDERED: IOHEXOL 350 MG/ML 100ML IJ ONE (13:49)
[2022-01-22] MEDS ORDERED: PANTOPRAZOLE 40 MG/10 ML VIAL INJ IV ONE (14:00)
[2022-01-22 14:18] LABS: Cholesterol 136 mg/dL (< 200)
[2022-01-22 14:21] LABS: HDL Cholesterol 52 mg/dL (40-59); LDL Cholesterol 76 mg/dL (< 100); Triglycerides 101 mg/dL (< 150)
[2022-01-22] MEDS ORDERED: ASPirin 81 mg TAB PO ONE (15:00)
[2022-01-22] MEDS: ACETAMINOPHEN 325 MG TAB PO PRN (15:07)
[2022-01-22] MEDS: SODIUM CHLORIDE 0.9% 1,000 ML IV SCH ×2 (15:50→23:50)
[2022-01-22] MEDS: NITROGLYCERIN 0.4 MG SL TAB SL PRN ×2 (20:32→23:22)
[2022-01-22] MEDS: ASCORBIC ACID 500 MG TAB PO SCH (22:25)
[2022-01-22] MEDS: ATORVASTATIN 20 MG TAB PO SCH (22:25)
[2022-01-22] MEDS: HEPARIN SODIUM (PORCINE) 5000 UNITS/ML 1ML VIAL SC SCH (22:25)
[2022-01-22] MEDS: MORPHINE SULFATE INJ 2 MG/ml SYRG IV PRN (22:37)
[2022-01-23 04:09] LABS: Basophils # (auto) 0.1 10 ^3/uL (0-0.2); Basophils % (auto) 0.6 % (0.0-2.0); Eosinophils # (auto) 0 10 ^3/uL (0-0.8); Eosinophils % (auto) 0.2 % (0.0-7.0); Hematocrit 36.4 % (41.0-53.0); Hemoglobin 11.7 g/dL (13.5-17.5); Lymphocytes # (auto) 3.2 10 ^3/uL (0.4-5.4); Lymphocytes % (auto) 22.9 % (10.0-50.0); Mean Corpuscular Hemoglobin 29.8 pg (28.0-32.0); Mean Corpuscular Hgb Conc. 32.1 g/dL (32.0-36.0); Mean Corpuscular Volume 92.7 fL (80.0-100.0); Monocytes # (auto) 1.2 10 ^3/uL (0-1.3); Monocytes % (auto) 8.7 % (0.0-12.0); Neutrophils # (auto) 9.4 10 ^3/uL (1.6-8.6); Neutrophils % (auto) 67.6 % (37.0-80.0); Red Blood Cells 3.93 10^6/uL (4.5-5.90); Red Cell Distribution Width 14.9 % (11.8-14.3); White Blood Cell 13.9 10^3/uL (4.4-10.8)
[2022-01-23 04:31] LABS: Albumin 2.3 g/dL (3.4-5.0); Potassium 4.1 mmol/L (3.5-5.1)
[2022-01-23 04:34] LABS: BUN/Creatinine Ratio 18.7; Bilirubin, Total 0.4 mg/dL (0.2-1.0); Total Protein 5.4 g/dL (6.4-8.2)
[2022-01-23] MEDS: cefTRIAXone 1GM/50ML D5W 50 ML IV SCH (09:40)
[2022-01-23] MEDS ORDERED: ZINC SULFATE 220mg CAP or TAB PO SCH (10:00)
[2022-01-23] MEDS ORDERED: MULTIPLE VITAMIN TAB PO SCH (10:00)
[2022-01-23] MEDS: PANTOPRAZOLE 40 MG/10 ML VIAL INJ IV SCH (10:18)
[2022-01-23] MEDS: ASCORBIC ACID 500 MG TAB PO SCH ×2 (10:19→22:28)
[2022-01-23] MEDS: ASPirin 81 mg TAB PO SCH (10:19)
[2022-01-23] MEDS: AZITHROMYCIN 500MG/ 250ML 250 ML IV SCH (10:19)
[2022-01-23] MEDS: HEPARIN SODIUM (PORCINE) 5000 UNITS/ML 1ML VIAL SC SCH ×2 (10:21→22:28)
[2022-01-23] MEDS: SODIUM CHLORIDE 0.9% 1,000 ML IV SCH (13:59)
[2022-01-23] MEDS: MORPHINE SULFATE INJ 2 MG/ml SYRG IV PRN (20:56)
[2022-01-23 22:00] VITALS: BP 155/52
[2022-01-23] MEDS ORDERED: TEMAZEPAM 15 MG CAP PO ONE (22:00)
[2022-01-23] MEDS ORDERED: MORPHINE SULFATE INJ 2 MG/ml SYRG IV ONE (22:00)
[2022-01-23] MEDS: ATORVASTATIN 20 MG TAB PO SCH (22:28)
[2022-01-23 23:00] VITALS: BP 155/52
[2022-01-23 23:55] VITALS: BP 142/68
[2022-01-24] MEDS: SODIUM CHLORIDE 0.9% 1,000 ML IV SCH ×3 (03:00→16:02)
[2022-01-24 05:00] VITALS: BP 145/67
[2022-01-24] MEDS: ACETAMINOPHEN 325 MG TAB PO PRN (05:10)
[2022-01-24] MEDS: cefTRIAXone 1GM/50ML D5W 50 ML IV SCH (08:37)
[2022-01-24 09:05] VITALS: BP 109/66
[2022-01-24] MEDS: SERTRALINE HCL 50 MG TAB PO SCH (10:19)
[2022-01-24] MEDS: GABAPENTIN 300 MG CAP PO SCH (10:19)
[2022-01-24] MEDS: ASPirin 81 mg TAB PO SCH (10:19)
[2022-01-24] MEDS: PANTOPRAZOLE 40 MG/10 ML VIAL INJ IV SCH (10:20)
[2022-01-24] MEDS: AZITHROMYCIN 500MG/ 250ML 250 ML IV SCH (10:20)
[2022-01-24] MEDS: HEPARIN SODIUM (PORCINE) 5000 UNITS/ML 1ML VIAL SC SCH ×2 (10:28→21:26)
[2022-01-24 12:57] VITALS: BP 136/70
[2022-01-24] MEDS ORDERED: ALPRAZolam 0.5 MG TAB PO PRN (14:00)
[2022-01-24] MEDS ORDERED: LISI40TA11 PO (16:16)
[2022-01-24 17:24] VITALS: BP 144/69
[2022-01-24] MEDS: ATORVASTATIN 20 MG TAB PO SCH (21:25)
[2022-01-24 22:00] VITALS: BP 140/70
[2022-01-24] MEDS ORDERED: DONEPEZIL HYDROCHLORIDE 5 MG TAB PO SCH (22:00)
[2022-01-24] MEDS ORDERED: traZODone HCL 50 MG TAB PO SCH (22:00)
[2022-01-25] MEDS: SODIUM CHLORIDE 0.9% 1,000 ML IV SCH ×2 (01:45→05:52)
[2022-01-25 05:00] VITALS: BP 146/70
[2022-01-25] MEDS: cefTRIAXone 1GM/50ML D5W 50 ML IV SCH (08:12)
[2022-01-25 09:00] VITALS: BP 166/78
[2022-01-25] MEDS ORDERED: CIPR-173 PO (09:28)
[2022-01-25] MEDS: ASPirin 81 mg TAB PO SCH (09:47)
[2022-01-25] MEDS: SERTRALINE HCL 50 MG TAB PO SCH (09:47)
[2022-01-25] MEDS: GABAPENTIN 300 MG CAP PO SCH (09:47)
[2022-01-25] MEDS: PANTOPRAZOLE 40 MG/10 ML VIAL INJ IV SCH (09:48)
[2022-01-25] MEDS: HEPARIN SODIUM (PORCINE) 5000 UNITS/ML 1ML VIAL SC SCH (09:53)
[2022-01-25] MEDS ORDERED: LISINOPRIL 20 MG TAB PO SCH ×2 (10:00)
[2022-01-25] MEDS ORDERED: BICALUTAMIDE 50 MG PO SCH (10:00)
[2022-01-25] MEDS: AZITHROMYCIN 500MG/ 250ML 250 ML IV SCH (10:32)
[2022-01-25 13:00] VITALS: BP 124/79
== END 2022-01-25 16:24 | disposition home health service (06) | DRG 871 ==
LOC: ER 10:45 → TELE 13:43 → TELE-EAST 01-23 21:17 → TELE-E-ADS 01-25 15:58
PROVIDERS: ADMIT Nurse Practitioner Family; ATTEND Family Medicine
DX: A41.51 Sepsis due to Escherichia coli [E. coli] (principal); I21.A1 Myocardial infarction type 2; N39.0 Urinary tract infection, site not specified; C95.90 Leukemia, unspecified not having achieved remission; E46 Unspecified protein-calorie malnutrition; N17.9 Acute kidney failure, unspecified; J44.1 Chronic obstructive pulmonary disease with (acute) exacerbation; F03.C3 Unspecified dementia, severe, with mood disturbance; R07.89 Other chest pain; E78.5 Hyperlipidemia, unspecified; C61 Malignant neoplasm of prostate; E11.22 Type 2 diabetes mellitus with diabetic chronic kidney disease; E11.65 Type 2 diabetes mellitus with hyperglycemia; F17.210 Nicotine dependence, cigarettes, uncomplicated; I12.9 Hypertensive chronic kidney disease with stage 1 through stage 4 chronic kidney disease, or unspecified chronic kidney disease; N18.9 Chronic kidney disease, unspecified; Z79.4 Long term (current) use of insulin; Z80.9 Family history of malignant neoplasm, unspecified; Z88.0 Allergy status to penicillin; Z85.46 Personal history of malignant neoplasm of prostate; Z90.79 Acquired absence of other genital organ(s); Z82.49 Family history of ischemic heart disease and other diseases of the circulatory system; Z83.3 Family history of diabetes mellitus; Z88.1 Allergy status to other antibiotic agents; Z71.6 Tobacco abuse counseling; B96.20 Unspecified Escherichia coli [E. coli] as the cause of diseases classified elsewhere; Z68.23 Body mass index [BMI] 23.0-23.9, adult
CPT/HCPCS: 36415; 71045; 71275; 80053; 80061; 81001; 83036; 83605; 84443; 84484; 85025; 85379; 87040; 87086; 87088; 87186; 87426; 93005; 93306; 93970; 96365; 96367; 96375; 99291; C9113; G0378; J0696

== ENCOUNTER 2022-02-10 09:15 | Emergency (ER) | payer MEDICARE ==
[~2022-02-10] VITALS: Ht 180.3 cm; Wt 185.0 kg
[~2022-02-10 09:15] MED LIST changes: +CIPR-173 PO; +LISI40TA11 PO
[2022-02-10] MEDS ORDERED: ASPirin 81 mg TAB PO ONE (10:30)
[2022-02-10] MEDS ORDERED: LABETALOL HCL 5 MG/ML 4ML SYRINGE IV ONE (10:30)
[2022-02-10] MEDS ORDERED: SODIUM CHLORIDE 0.9% 1,000 ML IV ONE (10:30)
[2022-02-10 10:57] LABS: Basophils # (auto) 0 10 ^3/uL (0-0.2); Basophils % (auto) 0.4 % (0.0-2.0); Eosinophils # (auto) 0.1 10 ^3/uL (0-0.8); Eosinophils % (auto) 0.6 % (0.0-7.0); Hematocrit 36.1 % (41.0-53.0); Hemoglobin 12.1 g/dL (13.5-17.5); Lymphocytes # (auto) 2.5 10 ^3/uL (0.4-5.4); Lymphocytes % (auto) 24.8 % (10.0-50.0); Mean Corpuscular Hemoglobin 29.9 pg (28.0-32.0); Mean Corpuscular Hgb Conc. 33.4 g/dL (32.0-36.0); Mean Corpuscular Volume 89.6 fL (80.0-100.0); Monocytes # (auto) 0.7 10 ^3/uL (0-1.3); Monocytes % (auto) 6.7 % (0.0-12.0); Neutrophils # (auto) 6.8 10 ^3/uL (1.6-8.6); Neutrophils % (auto) 67.5 % (37.0-80.0); Nucleated Red Blood Cells % 0.1 %; Red Blood Cells 4.03 10^6/uL (4.5-5.90); White Blood Cell 10.1 10^3/uL (4.4-10.8)
[2022-02-10 11:18] LABS: Albumin 2.6 g/dL (3.4-5.0); Calcium 8.6 mg/dL (8.5-10.1); Magnesium 1.9 mg/dL (1.6-2.6); Potassium 3.6 mmol/L (3.5-5.1)
[2022-02-10 11:21] LABS: BUN/Creatinine Ratio 20.4; Bilirubin, Total 0.2 mg/dL (0.2-1.0); Total Protein 6.1 g/dL (6.4-8.2)
[2022-02-10 14:31] LABS: Urine Bacteria FEW /hpf (None Seen); Urine Blood 2+ /uL (Negative); Urine Hyaline Cast FEW /lpf (0 - 2); Urine Mucus FEW (None Seen); Urine Specific Gravity 1.027 (1.001-1.035); Urine WBC 4 /hpf (0 - 3)
[2022-02-10] MEDS ORDERED: OLME40TA26 PO (14:42)
[2022-02-10] MEDS ORDERED: ATEN-60 PO (14:42)
[2022-02-10 15:04] VITALS: BP 182/89
== END 2022-02-10 15:06 | disposition home or self-care (01) ==
LOC: EDBD 09:15 → ER 09:15
DX: I10 Essential (primary) hypertension (principal); J44.9 Chronic obstructive pulmonary disease, unspecified; E11.22 Type 2 diabetes mellitus with diabetic chronic kidney disease; E78.5 Hyperlipidemia, unspecified; F17.210 Nicotine dependence, cigarettes, uncomplicated; Z98.890 Other specified postprocedural states; Z88.1 Allergy status to other antibiotic agents; Z79.899 Other long term (current) drug therapy; Z79.84 Long term (current) use of oral hypoglycemic drugs
CPT/HCPCS: 36415; 71046; 80053; 81001; 83735; 85025; 93005

== ENCOUNTER 2022-08-31 15:47 | Emergency (ER) | payer MEDICARE ==
[~2022-08-31] VITALS: Ht 180.3 cm; Wt 78.6 kg
[~2022-08-31 15:47] MED LIST changes: +ATEN-60 PO; +GABA-1250 PO; -GABA300C10 PO; -LISI40TA11 PO; +LISI40TA16 PO; +OLME40TA78 PO; +SERT-206 PO; -SERT50TA19 PO
[2022-08-31] MEDS ORDERED: TETRACAINE HCL 0.5% OPTH(EYE) SOLN 4ML ONE (16:51)
[2022-08-31 17:00] LABS: Basophils # (auto) 0 10 ^3/uL (0-0.2); Basophils % (auto) 0.5 % (0.0-2.0); Eosinophils # (auto) 0.2 10 ^3/uL (0-0.8); Eosinophils % (auto) 2.4 % (0.0-7.0); Hematocrit 40.8 % (41.0-53.0); Hemoglobin 13.5 g/dL (13.5-17.5); Lymphocytes # (auto) 3.3 10 ^3/uL (0.4-5.4); Lymphocytes % (auto) 34.2 % (10.0-50.0); Mean Corpuscular Hemoglobin 29.9 pg (28.0-32.0); Mean Corpuscular Hgb Conc. 33.1 g/dL (32.0-36.0); Mean Corpuscular Volume 90.6 fL (80.0-100.0); Monocytes # (auto) 0.6 10 ^3/uL (0-1.3); Monocytes % (auto) 5.8 % (0.0-12.0); Neutrophils # (auto) 5.6 10 ^3/uL (1.6-8.6); Neutrophils % (auto) 57.1 % (37.0-80.0); Nucleated Red Blood Cells % 0.1 %; Red Cell Distribution Width 14.5 % (11.8-14.3); White Blood Cell 9.8 10^3/uL (4.4-10.8)
[2022-08-31] MEDS ORDERED: ACYCLOVIR SOD 50MG/ML 800 MG in SODIUM CHL 0.9% 250 ML IV ONE ×2 (17:00→20:15)
[2022-08-31 17:21] LABS: Albumin 3.2 g/dL (3.4-5.0); Calcium 8.7 mg/dL (8.5-10.1); Potassium 3.9 mmol/L (3.5-5.1)
[2022-08-31 17:25] LABS: Bilirubin, Total 0.2 mg/dL (0.2-1.0); Total Protein 6.6 g/dL (6.4-8.2)
[2022-08-31] MEDS ORDERED: TETRACAINE HCL 0.5% OPTH(EYE) SOLN 4ML RIGHTEYE ONE (17:45)
[2022-08-31 20:08] VITALS: BP 179/96
[2022-08-31] MEDS ORDERED: KETOROLAC TROMETH 30 MG/ML 1ML VIAL IV ONE (20:45)
[2022-08-31] MEDS ORDERED: ACYCLOVIR 400 MG TAB PO ONE (21:00)
[2022-08-31 21:58] LABS: Urine Bacteria NONE SEEN /hpf (None Seen); Urine Blood 1+ /uL (Negative); Urine Specific Gravity 1.015 (1.001-1.035); Urine WBC 2 /hpf (0 - 3)
[2022-08-31 22:14] LABS: Alcohol, Urine < 3.0 mg/dL (0-10); Amphetamine Screen, Urine NEGATIVE (NEGATIVE); Barbiturate Scree,Urine NEGATIVE (NEGATIVE); Benzodiazephine Screen, Urine NEGATIVE (NEGATIVE); Cannabinoid Screen, Urine POSITIVE (NEGATIVE); Cocaine Screen, Urine NEGATIVE (NEGATIVE); Opiate Scree,Urine NEGATIVE (NEGATIVE); Phencyclidine Screen, Urine NEGATIVE (NEGATIVE)
[2022-08-31] MEDS ORDERED: ACYC400T16 PO (22:21)
[2022-08-31] MEDS ORDERED: HYDR-4902 PO (22:21)
[2022-08-31] MEDS ORDERED: NEOM0.1O7 OP (22:21)
== END 2022-08-31 22:52 | disposition home or self-care (01) ==
LOC: ER 15:47 → EDBD 15:47 → ER 22:50
DX: R07.89 Other chest pain (principal); B02.9 Zoster without complications; H10.9 Unspecified conjunctivitis; E11.65 Type 2 diabetes mellitus with hyperglycemia; F12.10 Cannabis abuse, uncomplicated; C61 Malignant neoplasm of prostate; Z95.0 Presence of cardiac pacemaker; I12.9 Hypertensive chronic kidney disease with stage 1 through stage 4 chronic kidney disease, or unspecified chronic kidney disease; E11.22 Type 2 diabetes mellitus with diabetic chronic kidney disease; N18.9 Chronic kidney disease, unspecified; J44.9 Chronic obstructive pulmonary disease, unspecified; E78.5 Hyperlipidemia, unspecified; F17.210 Nicotine dependence, cigarettes, uncomplicated; Z79.899 Other long term (current) drug therapy; Z79.2 Long term (current) use of antibiotics; Z88.0 Allergy status to penicillin; Z88.1 Allergy status to other antibiotic agents
CPT/HCPCS: 36415; 71045; 80053; 80307; 81001; 84484; 85025; 93005; 96374; 99285; J0133; J1885; J7050

== ENCOUNTER 2022-09-03 19:20 | Inpatient (IN) | payer MEDICARE ==
[~2022-09-03] VITALS: Ht 175.3 cm; Wt 65.9 kg
[~2022-09-03 19:20] MED LIST changes: +ACYC400T16 PO; +HYDR-4902 PO; +NEOM0.1O7 OP
[2022-09-03] MEDS ORDERED: ACETAMINOPHEN 325 MG TAB PO ONE (20:30)
[2022-09-03] MEDS ORDERED: ASPirin 81 mg TAB PO ONE (20:30)
[2022-09-03] MEDS ORDERED: ONDANSETRON HCL 4 MG/2 ML VIAL IV ONE (20:30)
[2022-09-03] MEDS ORDERED: NITROGLYCERIN 0.4MG/HR TOPICAL PATCH TD ONE (20:30)
[2022-09-03] MEDS ORDERED: MORPHINE SULFATE 4 MG/ML SYR/VIAL IV ONE (20:30)
[2022-09-03 20:38] LABS: Basophils # (auto) 0 10 ^3/uL (0-0.2); Basophils % (auto) 0.3 % (0.0-2.0); Eosinophils # (auto) 0.3 10 ^3/uL (0-0.8); Eosinophils % (auto) 3.2 % (0.0-7.0); Hematocrit 43.2 % (41.0-53.0); Lymphocytes # (auto) 3.2 10 ^3/uL (0.4-5.4); Lymphocytes % (auto) 34.1 % (10.0-50.0); Mean Corpuscular Hemoglobin 29.6 pg (28.0-32.0); Mean Corpuscular Hgb Conc. 32.4 g/dL (32.0-36.0); Mean Corpuscular Volume 91.3 fL (80.0-100.0); Monocytes # (auto) 0.5 10 ^3/uL (0-1.3); Monocytes % (auto) 5.7 % (0.0-12.0); Neutrophils # (auto) 5.3 10 ^3/uL (1.6-8.6); Neutrophils % (auto) 56.7 % (37.0-80.0); Nucleated Red Blood Cells % 0.2 %; Red Blood Cells 4.73 10^6/uL (4.5-5.90); White Blood Cell 9.4 10^3/uL (4.4-10.8)
[2022-09-03 20:59] LABS: INR 1.03 (0.9-1.15); Partial Thromboplastin Time 31.5 SEC (24.5-34.5)
[2022-09-03 21:00] LABS: Calcium 8.6 mg/dL (8.5-10.1); Magnesium 2.3 mg/dL (1.6-2.6); Potassium 4.1 mmol/L (3.5-5.1)
[2022-09-03 21:04] LABS: BUN/Creatinine Ratio 19.7 (10.0-20.0); Bilirubin, Total 0.4 mg/dL (0.2-1.0); Total Protein 6.3 g/dL (6.4-8.2)
[2022-09-03 23:35] VITALS: PULSE 60; RESP 12; O2SAT 100
[2022-09-04 04:53] LABS: Urine Bacteria NONE SEEN /hpf (None Seen); Urine Blood 1+ /uL (Negative); Urine Mucus FEW (None Seen); Urine Specific Gravity 1.026 (1.001-1.035); Urine WBC 5 /hpf (0 - 3)
[2022-09-04] MEDS ORDERED: MORPHINE SULFATE 4 MG/ML SYR/VIAL IV ONE (05:00)
[2022-09-04] MEDS ORDERED: ONDANSETRON HCL 4 MG/2 ML VIAL IV ONE (05:00)
[2022-09-04] MEDS ORDERED: diphenhdrAMINE HCL 50 MG/1 ML VL IV ONE (05:00)
[2022-09-04] MEDS ORDERED: GABAPENTIN 100 MG CAP PO ONE (05:00)
[2022-09-04] MEDS ORDERED: DEXTROSE (50%) 50ML SYRG IV PRN (06:30)
[2022-09-04] MEDS ORDERED: MORPHINE SULFATE INJ 2 MG/ml SYRG IV PRN (06:30)
[2022-09-04] MEDS ORDERED: NITROGLYCERIN 0.4 MG SL TAB SL PRN (06:30)
[2022-09-04] MEDS ORDERED: ACYCLOVIR 10MG/KG Q8HR PER RX 0 ML IV SCH (06:30)
[2022-09-04] MEDS: InsuLIN REG 1unit/0.01ml Soln (100units/ml) SC SCH ×4 (07:00→22:42)
[2022-09-04] MEDS: ACCU-CHEK COMFORT CURVE STRIP VI SCH ×4 (07:06→22:36)
[2022-09-04 08:07] VITALS: PULSE 60; RESP 12; O2SAT 100
[2022-09-04] MEDS: LISINOPRIL 20 MG TAB PO SCH (09:58)
[2022-09-04] MEDS: SERTRALINE HCL 50 MG TAB PO SCH (09:58)
[2022-09-04] MEDS: ENOXAPARIN SOD 40 MG/0.4 ML SYRINGE SC SCH (09:58)
[2022-09-04] MEDS: ATENOLOL 50 MG TAB PO SCH (10:00)
[2022-09-04] MEDS ORDERED: PANTOPRAZOLE 40 MG TAB PO SCH (10:00)
[2022-09-04] MEDS: ACYCLOVIR SOD 50MG/ML 800 MG in SODIUM CHL 0.9% 250 ML IV SCH ×2 (10:02→17:34)
[2022-09-04] MEDS: HYDROCORTONE 1% TOPICAL CREAM 30 GM TUBE TOP SCH ×2 (13:59→22:43)
[2022-09-04] MEDS ORDERED: NEOMYCIN-POLYMY-DEXAMETH 0.1% OPTH(EYE) OINT 3.5GM EACHEYE SCH (14:00)
[2022-09-04] MEDS: HYDROcodone-ACET 5/325MG TAB PO PRN ×2 (14:01→23:06)
[2022-09-04 20:10] VITALS: RESP 12; O2SAT 100
[2022-09-04] MEDS: ATORVASTATIN 20 MG TAB PO SCH (22:42)
[2022-09-04] MEDS: DONEPEZIL HYDROCHLORIDE 5 MG TAB PO SCH (22:42)
[2022-09-04] MEDS: ERYTHROMY OPTH OINT 5mg/gm 1gm or 3.5gm tube OP SCH (22:43)
[2022-09-05] VITALS (7 sets, daily range): BP systolic 94–155; BP diastolic 59–96; PULSE 60–102; RESP 16–20; TEMP 97.6–98.5; O2SAT 96–100
[2022-09-05] MEDS: ACYCLOVIR SOD 50MG/ML 800 MG in SODIUM CHL 0.9% 250 ML IV SCH ×3 (02:00→18:04)
[2022-09-05] MEDS: ERYTHROMY OPTH OINT 5mg/gm 1gm or 3.5gm tube OP SCH ×6 (02:30→21:38)
[2022-09-05] MEDS: InsuLIN REG 1unit/0.01ml Soln (100units/ml) SC SCH ×4 (06:22→21:14)
[2022-09-05] MEDS: ACCU-CHEK COMFORT CURVE STRIP VI SCH ×4 (06:22→21:14)
[2022-09-05] MEDS: HYDROcodone-ACET 5/325MG TAB PO PRN ×3 (06:35→21:13)
[2022-09-05 06:39] LABS: Basophils # (auto) 0 10 ^3/uL (0-0.2); Basophils % (auto) 0.4 % (0.0-2.0); Eosinophils # (auto) 0.3 10 ^3/uL (0-0.8); Eosinophils % (auto) 3.1 % (0.0-7.0); Hematocrit 38.1 % (41.0-53.0); Hemoglobin 12.6 g/dL (13.5-17.5); Lymphocytes % (auto) 27.6 % (10.0-50.0); Mean Corpuscular Hemoglobin 29.9 pg (28.0-32.0); Mean Corpuscular Hgb Conc. 33.1 g/dL (32.0-36.0); Mean Corpuscular Volume 90.4 fL (80.0-100.0); Monocytes # (auto) 0.7 10 ^3/uL (0-1.3); Neutrophils # (auto) 6.8 10 ^3/uL (1.6-8.6); Neutrophils % (auto) 62.9 % (37.0-80.0); Nucleated Red Blood Cells % 0.1 %; Red Blood Cells 4.21 10^6/uL (4.5-5.90); Red Cell Distribution Width 14.7 % (11.8-14.3); White Blood Cell 10.9 10^3/uL (4.4-10.8)
[2022-09-05 07:02] LABS: Potassium 4.2 mmol/L (3.5-5.1)
[2022-09-05 07:16] LABS: Albumin 2.6 g/dL (3.4-5.0); BUN/Creatinine Ratio 19.3 (10.0-20.0); Bilirubin, Total 0.4 mg/dL (0.2-1.0); Calcium 8.3 mg/dL (8.5-10.1); Total Protein 6.2 g/dL (6.4-8.2)
[2022-09-05] MEDS: SERTRALINE HCL 50 MG TAB PO SCH (10:53)
[2022-09-05] MEDS: LISINOPRIL 20 MG TAB PO SCH (10:53)
[2022-09-05] MEDS: ATENOLOL 50 MG TAB PO SCH (10:54)
[2022-09-05] MEDS: ENOXAPARIN SOD 40 MG/0.4 ML SYRINGE SC SCH (10:55)
[2022-09-05] MEDS: HYDROCORTONE 1% TOPICAL CREAM 30 GM TUBE TOP SCH ×2 (10:56→21:38)
[2022-09-05] MEDS: ATORVASTATIN 20 MG TAB PO SCH (21:13)
[2022-09-05] MEDS: DONEPEZIL HYDROCHLORIDE 5 MG TAB PO SCH (21:13)
[2022-09-06] VITALS (7 sets, daily range): BP systolic 129–180; BP diastolic 61–82; PULSE 60–61; RESP 16–18; TEMP 98–98.5; O2SAT 94–99
[2022-09-06] MEDS: ACYCLOVIR SOD 50MG/ML 800 MG in SODIUM CHL 0.9% 250 ML IV SCH ×3 (01:56→17:58)
[2022-09-06] MEDS: HYDROcodone-ACET 5/325MG TAB PO PRN ×5 (01:56→21:52)
[2022-09-06] MEDS: ERYTHROMY OPTH OINT 5mg/gm 1gm or 3.5gm tube OP SCH ×6 (01:56→21:51)
[2022-09-06] MEDS: ACCU-CHEK COMFORT CURVE STRIP VI SCH ×4 (06:01→21:52)
[2022-09-06] MEDS: InsuLIN REG 1unit/0.01ml Soln (100units/ml) SC SCH ×4 (06:02→21:53)
[2022-09-06 06:07] LABS: RPR Non Reactive (Non Reactive)
[2022-09-06] MEDS: LISINOPRIL 20 MG TAB PO SCH (10:00)
[2022-09-06] MEDS: SERTRALINE HCL 50 MG TAB PO SCH (10:00)
[2022-09-06] MEDS: ENOXAPARIN SOD 40 MG/0.4 ML SYRINGE SC SCH (10:00)
[2022-09-06] MEDS: ATENOLOL 50 MG TAB PO SCH (10:02)
[2022-09-06] MEDS: HYDROCORTONE 1% TOPICAL CREAM 30 GM TUBE TOP SCH ×2 (10:03→21:53)
[2022-09-06] MEDS: diphenhdrAMINE HCL 50 MG/1 ML VL IV PRN (20:27)
[2022-09-06] MEDS: DONEPEZIL HYDROCHLORIDE 5 MG TAB PO SCH (21:52)
[2022-09-06] MEDS: ATORVASTATIN 20 MG TAB PO SCH (21:52)
[2022-09-07] VITALS (8 sets, daily range): BP systolic 118–145; BP diastolic 68–81; PULSE 58–61; RESP 17–18; TEMP 98–98.5; O2SAT 97–98
[2022-09-07] MEDS: ERYTHROMY OPTH OINT 5mg/gm 1gm or 3.5gm tube OP SCH ×6 (02:54→21:16)
[2022-09-07] MEDS: ACYCLOVIR SOD 50MG/ML 800 MG in SODIUM CHL 0.9% 250 ML IV SCH ×3 (02:54→18:16)
[2022-09-07] MEDS: ACCU-CHEK COMFORT CURVE STRIP VI SCH ×4 (06:36→21:16)
[2022-09-07] MEDS: InsuLIN REG 1unit/0.01ml Soln (100units/ml) SC SCH ×4 (06:36→22:06)
[2022-09-07] MEDS: HYDROcodone-ACET 5/325MG TAB PO PRN ×3 (06:52→21:15)
[2022-09-07] MEDS: SERTRALINE HCL 50 MG TAB PO SCH (10:00)
[2022-09-07] MEDS: LISINOPRIL 20 MG TAB PO SCH (11:43)
[2022-09-07] MEDS: ENOXAPARIN SOD 40 MG/0.4 ML SYRINGE SC SCH (11:45)
[2022-09-07] MEDS: HYDROCORTONE 1% TOPICAL CREAM 30 GM TUBE TOP SCH ×2 (11:45→21:16)
[2022-09-07] MEDS: ATENOLOL 50 MG TAB PO SCH (11:45)
[2022-09-07] MEDS: ATORVASTATIN 20 MG TAB PO SCH (21:14)
[2022-09-07] MEDS: DONEPEZIL HYDROCHLORIDE 5 MG TAB PO SCH (21:14)
[2022-09-08] VITALS (7 sets, daily range): BP systolic 128–152; BP diastolic 39–89; PULSE 55–78; RESP 16–18; TEMP 97.6–98.6; O2SAT 93–99
[2022-09-08] MEDS: ACYCLOVIR SOD 50MG/ML 800 MG in SODIUM CHL 0.9% 250 ML IV SCH ×3 (02:05→17:28)
[2022-09-08] MEDS: ERYTHROMY OPTH OINT 5mg/gm 1gm or 3.5gm tube OP SCH ×6 (02:06→21:41)
[2022-09-08] MEDS: diphenhdrAMINE HCL 50 MG/1 ML VL IV PRN ×2 (02:12→21:41)
[2022-09-08] MEDS: HYDROcodone-ACET 5/325MG TAB PO PRN ×2 (02:13→21:42)
[2022-09-08] MEDS: ACCU-CHEK COMFORT CURVE STRIP VI SCH ×4 (06:12→21:43)
[2022-09-08] MEDS: InsuLIN REG 1unit/0.01ml Soln (100units/ml) SC SCH ×4 (06:31→21:53)
[2022-09-08 06:55] LABS: BUN/Creatinine Ratio 27.1 (10.0-20.0); Calcium 8.4 mg/dL (8.5-10.1)
[2022-09-08] MEDS: ATENOLOL 50 MG TAB PO SCH (10:27)
[2022-09-08] MEDS: SERTRALINE HCL 50 MG TAB PO SCH (10:28)
[2022-09-08] MEDS: ENOXAPARIN SOD 40 MG/0.4 ML SYRINGE SC SCH (10:30)
[2022-09-08] MEDS: LISINOPRIL 20 MG TAB PO SCH (10:31)
[2022-09-08] MEDS: HYDROCORTONE 1% TOPICAL CREAM 30 GM TUBE TOP SCH ×2 (10:34→21:43)
[2022-09-08] MEDS: DONEPEZIL HYDROCHLORIDE 5 MG TAB PO SCH (21:41)
[2022-09-08] MEDS: ATORVASTATIN 20 MG TAB PO SCH (21:42)
[2022-09-09] VITALS (7 sets, daily range): BP systolic 135–171; BP diastolic 47–90; PULSE 55–85; RESP 16–18; TEMP 98–98.8; O2SAT 97–100
[2022-09-09] MEDS: ACYCLOVIR SOD 50MG/ML 800 MG in SODIUM CHL 0.9% 250 ML IV SCH ×3 (02:02→22:16)
[2022-09-09] MEDS: ERYTHROMY OPTH OINT 5mg/gm 1gm or 3.5gm tube OP SCH ×3 (02:03→10:39)
[2022-09-09] MEDS: ACCU-CHEK COMFORT CURVE STRIP VI SCH ×4 (06:23→22:17)
[2022-09-09] MEDS: InsuLIN REG 1unit/0.01ml Soln (100units/ml) SC SCH ×4 (06:24→22:19)
[2022-09-09 09:20] LABS: Basophils # (auto) 0 10 ^3/uL (0-0.2); Basophils % (auto) 0.3 % (0.0-2.0); Eosinophils # (auto) 0.5 10 ^3/uL (0-0.8); Eosinophils % (auto) 5.6 % (0.0-7.0); Hemoglobin 13.2 g/dL (13.5-17.5); Lymphocytes # (auto) 2.9 10 ^3/uL (0.4-5.4); Lymphocytes % (auto) 29.8 % (10.0-50.0); Mean Corpuscular Hemoglobin 29.6 pg (28.0-32.0); Mean Corpuscular Hgb Conc. 32.9 g/dL (32.0-36.0); Monocytes # (auto) 0.5 10 ^3/uL (0-1.3); Monocytes % (auto) 5.4 % (0.0-12.0); Neutrophils # (auto) 5.7 10 ^3/uL (1.6-8.6); Neutrophils % (auto) 58.9 % (37.0-80.0); Nucleated Red Blood Cells % 0.2 %; Red Blood Cells 4.45 10^6/uL (4.5-5.90); Red Cell Distribution Width 14.6 % (11.8-14.3); White Blood Cell 9.7 10^3/uL (4.4-10.8)
[2022-09-09 09:34] LABS: Albumin 2.7 g/dL (3.4-5.0); Calcium 8.5 mg/dL (8.5-10.1); Magnesium 1.7 mg/dL (1.6-2.6)
[2022-09-09 09:40] LABS: BUN/Creatinine Ratio 21.6 (10.0-20.0); Bilirubin, Total 0.4 mg/dL (0.2-1.0); Total Protein 5.9 g/dL (6.4-8.2)
[2022-09-09] MEDS: ENOXAPARIN SOD 40 MG/0.4 ML SYRINGE SC SCH (10:28)
[2022-09-09] MEDS: LISINOPRIL 20 MG TAB PO SCH (10:29)
[2022-09-09] MEDS: SERTRALINE HCL 50 MG TAB PO SCH (10:29)
[2022-09-09] MEDS: ATENOLOL 50 MG TAB PO SCH (10:30)
[2022-09-09] MEDS: HYDROCORTONE 1% TOPICAL CREAM 30 GM TUBE TOP SCH ×2 (10:39→22:17)
[2022-09-09] MEDS: HYDROcodone-ACET 5/325MG TAB PO PRN (22:00)
[2022-09-09] MEDS ORDERED: ACYCLOVIR SOD 50MG/ML 800 MG in SODIUM CHL 0.9% 250 ML IV SCH (22:00)
[2022-09-09] MEDS: DONEPEZIL HYDROCHLORIDE 5 MG TAB PO SCH (22:16)
[2022-09-09] MEDS: ATORVASTATIN 20 MG TAB PO SCH (22:17)
[2022-09-10] VITALS (7 sets, daily range): BP systolic 138–163; BP diastolic 36–81; PULSE 58–109; RESP 18–24; TEMP 99–103.3; O2SAT 92–100
[2022-09-10] MEDS: ACCU-CHEK COMFORT CURVE STRIP VI SCH ×4 (05:57→22:04)
[2022-09-10] MEDS: InsuLIN REG 1unit/0.01ml Soln (100units/ml) SC SCH ×4 (05:58→22:17)
[2022-09-10] MEDS: ACETAMINOPHEN 325 MG TAB PO PRN ×3 (07:03→20:49)
[2022-09-10] MEDS: ACYCLOVIR SOD 50MG/ML 800 MG in SODIUM CHL 0.9% 250 ML IV SCH ×2 (09:54→23:37)
[2022-09-10] MEDS: ENOXAPARIN SOD 40 MG/0.4 ML SYRINGE SC SCH (09:54)
[2022-09-10] MEDS: SERTRALINE HCL 50 MG TAB PO SCH (09:56)
[2022-09-10] MEDS: HYDROcodone-ACET 5/325MG TAB PO PRN (09:57)
[2022-09-10] MEDS: HYDROCORTONE 1% TOPICAL CREAM 30 GM TUBE TOP SCH ×2 (10:01→22:11)
[2022-09-10] MEDS: LISINOPRIL 20 MG TAB PO SCH (10:06)
[2022-09-10] MEDS: ATENOLOL 50 MG TAB PO SCH (10:07)
[2022-09-10] MEDS: ATORVASTATIN 20 MG TAB PO SCH (22:04)
[2022-09-10] MEDS: DONEPEZIL HYDROCHLORIDE 5 MG TAB PO SCH (22:04)
[2022-09-11] VITALS (7 sets, daily range): BP systolic 83–126; BP diastolic 39–53; PULSE 62–69; RESP 16–24; TEMP 98.2–103.4; O2SAT 94–96
[2022-09-11] MEDS: ACETAMINOPHEN 325 MG TAB PO PRN (04:50)
[2022-09-11] MEDS: ACCU-CHEK COMFORT CURVE STRIP VI SCH ×4 (06:27→22:18)
[2022-09-11] MEDS: InsuLIN REG 1unit/0.01ml Soln (100units/ml) SC SCH ×4 (06:39→22:38)
[2022-09-11] MEDS: ACYCLOVIR SOD 50MG/ML 800 MG in SODIUM CHL 0.9% 250 ML IV SCH ×2 (09:13→23:27)
[2022-09-11] MEDS: LISINOPRIL 20 MG TAB PO SCH (09:14)
[2022-09-11] MEDS: ATENOLOL 50 MG TAB PO SCH (09:14)
[2022-09-11] MEDS: SERTRALINE HCL 50 MG TAB PO SCH (09:15)
[2022-09-11] MEDS: ENOXAPARIN SOD 40 MG/0.4 ML SYRINGE SC SCH (09:15)
[2022-09-11] MEDS: HYDROCORTONE 1% TOPICAL CREAM 30 GM TUBE TOP SCH ×2 (09:21→22:18)
[2022-09-11] MEDS: HYDROcodone-ACET 5/325MG TAB PO PRN (09:21)
[2022-09-11] MEDS ORDERED: VANCOMYCIN PER PHARMACY 0 MG IV SCH (11:45)
[2022-09-11] MEDS ORDERED: VANCOMYCIN 1GM/250ML 250 ML IV ONE (11:45)
[2022-09-11] MEDS: SODIUM CHLORIDE 0.9% 1,000 ML IV SCH ×2 (11:55→18:25)
[2022-09-11] MEDS ORDERED: CEFEPIME 1GM/ 50ML 50 ML IV SCH ×2 (14:00→23:00)
[2022-09-11] MEDS: ONDANSETRON HCL 4 MG/2 ML VIAL IV PRN (14:38)
[2022-09-11] MEDS: IBUPROFEN 600 MG TAB PO PRN (20:19)
[2022-09-11] MEDS: DONEPEZIL HYDROCHLORIDE 5 MG TAB PO SCH (22:18)
[2022-09-11] MEDS: ATORVASTATIN 20 MG TAB PO SCH (22:18)
[2022-09-12] VITALS (9 sets, daily range): BP systolic 95–117; BP diastolic 44–61; PULSE 59–67; RESP 16–19; TEMP 97.8–99.5; O2SAT 94–100
[2022-09-12] MEDS: SODIUM CHLORIDE 0.9% 1,000 ML IV SCH ×4 (00:35→21:05)
[2022-09-12] MEDS: CEFEPIME 1GM/ 50ML 50 ML IV SCH ×2 (01:43→15:12)
[2022-09-12] MEDS: ACCU-CHEK COMFORT CURVE STRIP VI SCH ×4 (06:29→23:19)
[2022-09-12] MEDS: InsuLIN REG 1unit/0.01ml Soln (100units/ml) SC SCH ×4 (06:55→23:49)
[2022-09-12] MEDS: ATENOLOL 50 MG TAB PO SCH (09:38)
[2022-09-12] MEDS: ACYCLOVIR SOD 50MG/ML 800 MG in SODIUM CHL 0.9% 250 ML IV SCH ×2 (09:38→23:24)
[2022-09-12] MEDS: ENOXAPARIN SOD 40 MG/0.4 ML SYRINGE SC SCH (09:39)
[2022-09-12] MEDS: SERTRALINE HCL 50 MG TAB PO SCH (09:39)
[2022-09-12] MEDS: LISINOPRIL 20 MG TAB PO SCH (09:39)
[2022-09-12] MEDS: HYDROCORTONE 1% TOPICAL CREAM 30 GM TUBE TOP SCH ×2 (09:50→23:55)
[2022-09-12] MEDS: HYDROcodone-ACET 5/325MG TAB PO PRN ×3 (09:54→23:18)
[2022-09-12] MEDS: ONDANSETRON HCL 4 MG/2 ML VIAL IV PRN (15:13)
[2022-09-12] MEDS: VANCOMYCIN 1GM/250ML 250 ML IV SCH (16:28)
[2022-09-12] MEDS: DONEPEZIL HYDROCHLORIDE 5 MG TAB PO SCH (23:18)
[2022-09-12] MEDS: ATORVASTATIN 20 MG TAB PO SCH (23:18)
[2022-09-13] VITALS (7 sets, daily range): BP systolic 101–140; BP diastolic 43–70; PULSE 60–65; RESP 17–18; TEMP 98–98.8; O2SAT 97–100
[2022-09-13] MEDS: CEFEPIME 1GM/ 50ML 50 ML IV SCH (02:15)
[2022-09-13] MEDS: SODIUM CHLORIDE 0.9% 1,000 ML IV SCH ×4 (03:45→23:45)
[2022-09-13] MEDS: HYDROcodone-ACET 5/325MG TAB PO PRN (06:08)
[2022-09-13] MEDS: ACCU-CHEK COMFORT CURVE STRIP VI SCH ×4 (06:09→22:53)
[2022-09-13] MEDS: InsuLIN REG 1unit/0.01ml Soln (100units/ml) SC SCH ×4 (06:19→22:55)
[2022-09-13] MEDS: SERTRALINE HCL 50 MG TAB PO SCH (09:42)
[2022-09-13] MEDS: IBUPROFEN 600 MG TAB PO PRN ×2 (09:42→22:36)
[2022-09-13] MEDS: LISINOPRIL 20 MG TAB PO SCH (09:43)
[2022-09-13] MEDS: ENOXAPARIN SOD 40 MG/0.4 ML SYRINGE SC SCH (09:44)
[2022-09-13] MEDS: ACYCLOVIR SOD 50MG/ML 800 MG in SODIUM CHL 0.9% 250 ML IV SCH (09:44)
[2022-09-13] MEDS: HYDROCORTONE 1% TOPICAL CREAM 30 GM TUBE TOP SCH ×2 (10:22→22:37)
[2022-09-13 11:27] LABS: Hematocrit 39.9 % (41.0-53.0); Hemoglobin 13.3 g/dL (13.5-17.5); Mean Corpuscular Hgb Conc. 33.4 g/dL (32.0-36.0); Mean Corpuscular Volume 89.6 fL (80.0-100.0); Red Blood Cells 4.45 10^6/uL (4.5-5.90); Red Cell Distribution Width 14.6 % (11.8-14.3); White Blood Cell 21.3 10^3/uL (4.4-10.8)
[2022-09-13 11:44] LABS: Basophils % (manual) 0 (0.0-2.0); Blast Cells 0; Eosinophils % (manual) 0 (0-7); Metamyelocytes % 0; Myelocytes % 0; Promyelocytes % 0; Reactive Lymphocytes 0
[2022-09-13 11:45] LABS: Albumin 2.1 g/dL (3.4-5.0); BUN/Creatinine Ratio 28.8 (10.0-20.0); Bilirubin, Total 0.5 mg/dL (0.2-1.0); Calcium 7.9 mg/dL (8.5-10.1)
[2022-09-13 11:58] LABS: Potassium 2.8 mmol/L (3.5-5.1)
[2022-09-13] MEDS ORDERED: POTASSIUM CHL 20MEQ/100ML 100 ML IV ONE (12:15)
[2022-09-13 12:34] LABS: Band Neutrophils % (manual) 8; Lymphocytes % (manual) 16 (10.0-50.0); Monocytes % (manual) 5 (0-12)
[2022-09-13] MEDS: VANCOMYCIN 1GM/250ML 250 ML IV SCH (13:52)
[2022-09-13] MEDS: POTASSIUM CHL 20MEQ/100ML 100 ML IV SCH ×2 (13:54→15:58)
[2022-09-13] MEDS: ACYCLOVIR 400 MG TAB PO SCH ×3 (13:58→22:36)
[2022-09-13] MEDS: DONEPEZIL HYDROCHLORIDE 5 MG TAB PO SCH (22:36)
[2022-09-13] MEDS: ATORVASTATIN 20 MG TAB PO SCH (22:36)
[2022-09-14] VITALS (8 sets, daily range): BP systolic 130–161; BP diastolic 52–93; PULSE 60–61; RESP 16–20; TEMP 98.1–99.2; O2SAT 96–100
[2022-09-14] MEDS: ACYCLOVIR 400 MG TAB PO SCH ×5 (05:22→22:06)
[2022-09-14] MEDS: ACCU-CHEK COMFORT CURVE STRIP VI SCH ×4 (05:23→22:06)
[2022-09-14] MEDS: InsuLIN REG 1unit/0.01ml Soln (100units/ml) SC SCH ×4 (05:34→22:14)
[2022-09-14] MEDS: SODIUM CHLORIDE 0.9% 1,000 ML IV SCH ×3 (06:25→20:29)
[2022-09-14 07:44] LABS: Albumin 2.1 g/dL (3.4-5.0); Calcium 7.6 mg/dL (8.5-10.1); Potassium 3.2 mmol/L (3.5-5.1)
[2022-09-14 07:47] LABS: BUN/Creatinine Ratio 25.5 (10.0-20.0); Bilirubin, Total 0.5 mg/dL (0.2-1.0); Total Protein 5.3 g/dL (6.4-8.2)
[2022-09-14] MEDS: ENOXAPARIN SOD 40 MG/0.4 ML SYRINGE SC SCH (09:39)
[2022-09-14] MEDS: LISINOPRIL 20 MG TAB PO SCH (09:39)
[2022-09-14] MEDS: SERTRALINE HCL 50 MG TAB PO SCH (09:40)
[2022-09-14] MEDS: HYDROCORTONE 1% TOPICAL CREAM 30 GM TUBE TOP SCH ×2 (09:41→22:06)
[2022-09-14] MEDS: VANCOMYCIN 1GM/250ML 250 ML IV SCH (14:32)
[2022-09-14] MEDS: IBUPROFEN 600 MG TAB PO PRN (17:45)
[2022-09-14] MEDS: ATORVASTATIN 20 MG TAB PO SCH (22:06)
[2022-09-14] MEDS: DONEPEZIL HYDROCHLORIDE 5 MG TAB PO SCH (22:06)
[2022-09-15] VITALS (7 sets, daily range): BP systolic 111–166; BP diastolic 59–70; PULSE 56–60; RESP 15–18; TEMP 97.5–99.7; O2SAT 97–100
[2022-09-15] MEDS: SODIUM CHLORIDE 0.9% 1,000 ML IV SCH ×2 (02:59→09:45)
[2022-09-15] MEDS: ACYCLOVIR 400 MG TAB PO SCH ×5 (06:24→21:33)
[2022-09-15] MEDS: ACCU-CHEK COMFORT CURVE STRIP VI SCH ×4 (06:24→21:29)
[2022-09-15] MEDS: InsuLIN REG 1unit/0.01ml Soln (100units/ml) SC SCH ×4 (06:25→21:29)
[2022-09-15] MEDS: VANCOMYCIN 1GM/250ML 250 ML IV SCH (08:34)
[2022-09-15] MEDS: SERTRALINE HCL 50 MG TAB PO SCH (09:46)
[2022-09-15] MEDS: LISINOPRIL 20 MG TAB PO SCH (09:46)
[2022-09-15] MEDS: ENOXAPARIN SOD 40 MG/0.4 ML SYRINGE SC SCH (09:46)
[2022-09-15] MEDS: HYDROCORTONE 1% TOPICAL CREAM 30 GM TUBE TOP SCH ×2 (09:47→21:37)
[2022-09-15 11:34] LABS: Calcium 8.1 mg/dL (8.5-10.1); Potassium 3.1 mmol/L (3.5-5.1)
[2022-09-15 11:39] LABS: BUN/Creatinine Ratio 17.8 (10.0-20.0); Bilirubin, Total 0.9 mg/dL (0.2-1.0); Total Protein 5.9 g/dL (6.4-8.2)
[2022-09-15] MEDS: hydrALAZINE HCL 20 MG/ML VL IV PRN ×2 (17:21→23:41)
[2022-09-15] MEDS: IBUPROFEN 600 MG TAB PO PRN (17:21)
[2022-09-15] MEDS: DONEPEZIL HYDROCHLORIDE 5 MG TAB PO SCH (21:33)
[2022-09-15] MEDS: ATORVASTATIN 20 MG TAB PO SCH (21:33)
[2022-09-16] VITALS (7 sets, daily range): BP systolic 133–165; BP diastolic 50–74; PULSE 57–68; RESP 17–24; TEMP 97.7–98.8; O2SAT 95–98
[2022-09-16] MEDS: VANCOMYCIN 1GM/250ML 250 ML IV SCH ×2 (03:05→21:01)
[2022-09-16] MEDS: InsuLIN REG 1unit/0.01ml Soln (100units/ml) SC SCH ×4 (06:17→22:50)
[2022-09-16] MEDS: ACCU-CHEK COMFORT CURVE STRIP VI SCH ×4 (06:17→22:50)
[2022-09-16] MEDS: ACYCLOVIR 400 MG TAB PO SCH ×5 (06:43→20:59)
[2022-09-16] MEDS: SERTRALINE HCL 50 MG TAB PO SCH (09:43)
[2022-09-16] MEDS: HYDROCORTONE 1% TOPICAL CREAM 30 GM TUBE TOP SCH ×2 (09:44→22:50)
[2022-09-16] MEDS: LISINOPRIL 20 MG TAB PO SCH (09:44)
[2022-09-16] MEDS: hydrALAZINE HCL 20 MG/ML VL IV PRN (12:33)
[2022-09-16] MEDS: IBUPROFEN 600 MG TAB PO PRN ×2 (17:01→22:51)
[2022-09-16] MEDS ORDERED: POTASSIUM EFFERVESENT TAB 25 MEQ PO ONE (20:00)
[2022-09-16] MEDS: ATORVASTATIN 20 MG TAB PO SCH (20:59)
[2022-09-16] MEDS: DONEPEZIL HYDROCHLORIDE 5 MG TAB PO SCH (20:59)
[2022-09-16] MEDS ORDERED: VANCOMYCIN 1GM/250ML 250 ML IV SCH (21:45)
[2022-09-17] VITALS (8 sets, daily range): BP systolic 138–153; BP diastolic 54–98; PULSE 60–61; RESP 19–24; TEMP 97.7–98.5; O2SAT 94–98
[2022-09-17] MEDS: ONDANSETRON HCL 4 MG/2 ML VIAL IV PRN (05:53)
[2022-09-17] MEDS: IBUPROFEN 600 MG TAB PO PRN ×3 (05:53→19:35)
[2022-09-17] MEDS: ACYCLOVIR 400 MG TAB PO SCH ×2 (05:54→12:30)
[2022-09-17] MEDS: ACCU-CHEK COMFORT CURVE STRIP VI SCH ×4 (06:26→20:58)
[2022-09-17] MEDS: InsuLIN REG 1unit/0.01ml Soln (100units/ml) SC SCH ×4 (06:26→21:07)
[2022-09-17] MEDS: SERTRALINE HCL 50 MG TAB PO SCH (12:30)
[2022-09-17] MEDS: LISINOPRIL 20 MG TAB PO SCH (12:30)
[2022-09-17] MEDS: VANCOMYCIN 1GM/250ML 250 ML IV SCH ×2 (13:11→15:20)
[2022-09-17] MEDS: HYDROCORTONE 1% TOPICAL CREAM 30 GM TUBE TOP SCH ×2 (13:12→20:58)
[2022-09-17] MEDS: ATORVASTATIN 20 MG TAB PO SCH (20:58)
[2022-09-17] MEDS: DONEPEZIL HYDROCHLORIDE 5 MG TAB PO SCH (20:58)
[2022-09-18] MEDS: IBUPROFEN 600 MG TAB PO PRN ×3 (02:17→18:30)
[2022-09-18 05:00] VITALS: BP 155/67; PULSE 63; RESP 21; TEMP 97.8; O2SAT 98
[2022-09-18 05:44] LABS: BUN/Creatinine Ratio 18.6 (10.0-20.0); Calcium 7.9 mg/dL (8.5-10.1)
[2022-09-18 05:50] LABS: Hematocrit 33.4 % (41.0-53.0); Mean Corpuscular Hemoglobin 29.6 pg (28.0-32.0); Mean Corpuscular Hgb Conc. 32.8 g/dL (32.0-36.0); Mean Corpuscular Volume 90.3 fL (80.0-100.0); Red Cell Distribution Width 14.8 % (11.8-14.3)
[2022-09-18 05:56] LABS: Basophils % (manual) 0 (0.0-2.0); Blast Cells 0; Promyelocytes % 0; Reactive Lymphocytes 0
[2022-09-18 06:32] LABS: Potassium 2.8 mmol/L (3.5-5.1)
[2022-09-18] MEDS: VANCOMYCIN 1GM/250ML 250 ML IV SCH (06:41)
[2022-09-18] MEDS: ACCU-CHEK COMFORT CURVE STRIP VI SCH ×3 (06:41→17:12)
[2022-09-18] MEDS ORDERED: POTASSIUM CHL 20 Meq TABLET PO ONE ×2 (06:45→10:45)
[2022-09-18] MEDS: InsuLIN REG 1unit/0.01ml Soln (100units/ml) SC SCH ×3 (06:56→17:00)
[2022-09-18 08:20] VITALS: PULSE 60
[2022-09-18 09:14] VITALS: BP 139/44; PULSE 68; RESP 15; TEMP 98.6; O2SAT 97
[2022-09-18 10:39] LABS: Band Neutrophils % (manual) 3; Eosinophils % (manual) 2 (0-7); Lymphocytes % (manual) 25 (10.0-50.0); Metamyelocytes % 4; Monocytes % (manual) 9 (0-12); Myelocytes % 2
[2022-09-18] MEDS: HYDROCORTONE 1% TOPICAL CREAM 30 GM TUBE TOP SCH (11:02)
[2022-09-18] MEDS: LISINOPRIL 20 MG TAB PO SCH (11:04)
[2022-09-18] MEDS: SERTRALINE HCL 50 MG TAB PO SCH (11:04)
[2022-09-18 12:50] VITALS: BP 159/79; PULSE 61; RESP 16; TEMP 98; O2SAT 96
[2022-09-18 14:35] LABS: INR 1.09 (0.9-1.15)
[2022-09-18] MEDS ORDERED: LIDOCAINE 1% (LOCAL ANESTH.) PF 5ml SDV ID ONE (16:30)
[2022-09-18 18:07] VITALS: BP 139/44; PULSE 62; RESP 15; TEMP 98; O2SAT 97
[2022-09-18] MEDS ORDERED: SODIUM CHLOR 0.9% PF (SALINE LOCK) 10ML VIAL/SYR IV SCH (22:00)
== END 2022-09-18 19:27 | DRG 871 ==
LOC: EDBD 19:20 → ER 19:23 → TELE 09-04 06:41 → TELE-EAST 09-04 23:36
PROVIDERS: ADMIT Family Medicine; ATTEND Family Medicine
PROC: 02HV33Z Insertion of Infusion Device into Superior Vena Cava, Percutaneous Approach (ICD-10-PCS; principal; 2022-09-18)
PROC: B548ZZA Ultrasonography of Superior Vena Cava, Guidance (ICD-10-PCS; 2022-09-18)
DX: A41.02 Sepsis due to Methicillin resistant Staphylococcus aureus (principal); R65.21 Severe sepsis with septic shock; B02.30 Zoster ocular disease, unspecified; F03.93 Unspecified dementia, unspecified severity, with mood disturbance; I24.9 Acute ischemic heart disease, unspecified; C95.10 Chronic leukemia of unspecified cell type not having achieved remission; B02.9 Zoster without complications; F17.210 Nicotine dependence, cigarettes, uncomplicated; E11.22 Type 2 diabetes mellitus with diabetic chronic kidney disease; E78.5 Hyperlipidemia, unspecified; I12.9 Hypertensive chronic kidney disease with stage 1 through stage 4 chronic kidney disease, or unspecified chronic kidney disease; N18.9 Chronic kidney disease, unspecified; E78.00 Pure hypercholesterolemia, unspecified; I25.10 Atherosclerotic heart disease of native coronary artery without angina pectoris; G89.29 Other chronic pain; J44.9 Chronic obstructive pulmonary disease, unspecified; E66.9 Obesity, unspecified; F32.A Depression, unspecified; I95.9 Hypotension, unspecified; Z88.0 Allergy status to penicillin; Z78.9 Other specified health status; Z88.8 Allergy status to other drugs, medicaments and biological substances; Z68.26 Body mass index [BMI] 26.0-26.9, adult; Z83.3 Family history of diabetes mellitus; Z80.9 Family history of malignant neoplasm, unspecified; Z82.49 Family history of ischemic heart disease and other diseases of the circulatory system; Z95.0 Presence of cardiac pacemaker
CPT/HCPCS: 36415; 36569; 71045; 71260; 74177; 80048; 80053; 80061; 80202; 81001; 82565; 82962; 83036; 83735; 83880; 84443; 84484; 85007; 85025; 85027; 85379; 85610; 85730; 86592; 86703; 87040; 87077; 87186; 93005; 93306; G0378; J1815; J2405; J3480

== ENCOUNTER 2022-10-04 09:44 | Inpatient (IN) | payer MEDICARE ==
[~2022-10-04] VITALS: Ht 180.3 cm; Wt 78.0 kg
[2022-10-04 10:05] VITALS: PULSE 66; O2SAT 99
[2022-10-04 10:41] LABS: Basophils # (auto) 0 10 ^3/uL (0-0.2); Basophils % (auto) 0.4 % (0.0-2.0); Eosinophils # (auto) 0.2 10 ^3/uL (0-0.8); Hematocrit 32.6 % (41.0-53.0); Hemoglobin 10.5 g/dL (13.5-17.5); Lymphocytes # (auto) 2.3 10 ^3/uL (0.4-5.4); Lymphocytes % (auto) 20.8 % (10.0-50.0); Mean Corpuscular Hemoglobin 28.2 pg (28.0-32.0); Mean Corpuscular Hgb Conc. 32.3 g/dL (32.0-36.0); Mean Corpuscular Volume 87.3 fL (80.0-100.0); Monocytes # (auto) 0.6 10 ^3/uL (0-1.3); Monocytes % (auto) 5.5 % (0.0-12.0); Neutrophils # (auto) 7.9 10 ^3/uL (1.6-8.6); Neutrophils % (auto) 71.3 % (37.0-80.0); Nucleated Red Blood Cells % 0.2 %; Red Blood Cells 3.73 10^6/uL (4.5-5.90); White Blood Cell 11.1 10^3/uL (4.4-10.8)
[2022-10-04] MEDS ORDERED: MORPHINE SULFATE 4 MG/ML SYR/VIAL IV ONE (10:45)
[2022-10-04] MEDS ORDERED: ASPirin-EC 325mg tab PO ONE (10:45)
[2022-10-04] MEDS ORDERED: ONDANSETRON HCL 4 MG/2 ML VIAL IV ONE (11:00)
[2022-10-04 11:24] LABS: Calcium 8.5 mg/dL (8.5-10.1); Potassium 3.7 mmol/L (3.5-5.1)
[2022-10-04 11:39] LABS: Albumin 2.2 g/dL (3.4-5.0); BUN/Creatinine Ratio 16.5 (10.0-20.0); Bilirubin, Total 0.5 mg/dL (0.2-1.0); Total Protein 6.6 g/dL (6.4-8.2)
[2022-10-04] MEDS ORDERED: ATORVASTATIN 20 MG TAB PO ONE (12:00)
[2022-10-04] MEDS ORDERED: ATORVASTATIN 20 MG TAB ONE (12:28)
[2022-10-04] MEDS: MORPHINE SULFATE INJ 2 MG/ml SYRG IV PRN ×2 (15:49→19:28)
[2022-10-04] MEDS: hydrALAZINE HCL 20 MG/ML VL IV PRN (16:15)
[2022-10-04 16:48] LABS: Urine Bacteria FEW /hpf (None Seen); Urine Blood Negative /uL (Negative); Urine Clarity HAZY (Clear); Urine Color Yellow (Yellow); Urine Mucus FEW (None Seen); Urine Protein, UAD 2+ (Negative); Urine Specific Gravity 1.029 (1.001-1.035); Urine WBC 2 /hpf (0 - 3)
[2022-10-04] MEDS ORDERED: DEXTROSE (50%) 50ML SYRG IV ONE (17:00)
[2022-10-04] MEDS ORDERED: ACCU-CHEK COMFORT CURVE STRIP VI ONE (17:00)
[2022-10-04] MEDS ORDERED: InsuLIN REG 1unit/0.01ml Soln (100units/ml) SC ONE (17:00)
[2022-10-04] MEDS: HYDROcodone-ACET 5/325MG TAB PO PRN (17:25)
[2022-10-04 19:45] VITALS: PULSE 60; RESP 17; O2SAT 99
[2022-10-04] MEDS: GABAPENTIN 300 MG CAP PO SCH ×2 (20:14→22:00)
[2022-10-04] MEDS ORDERED: GABAPENTIN 300 MG CAP PO SCH (22:00)
[2022-10-05 05:35] LABS: Basophils # (auto) 0.1 10 ^3/uL (0-0.2); Basophils % (auto) 0.6 % (0.0-2.0); Eosinophils # (auto) 0.4 10 ^3/uL (0-0.8); Eosinophils % (auto) 3.8 % (0.0-7.0); Hemoglobin 11.4 g/dL (13.5-17.5); Lymphocytes # (auto) 2.6 10 ^3/uL (0.4-5.4); Lymphocytes % (auto) 25.5 % (10.0-50.0); Mean Corpuscular Hemoglobin 29.3 pg (28.0-32.0); Mean Corpuscular Hgb Conc. 33.6 g/dL (32.0-36.0); Mean Corpuscular Volume 87.1 fL (80.0-100.0); Monocytes # (auto) 0.8 10 ^3/uL (0-1.3); Monocytes % (auto) 8.2 % (0.0-12.0); Neutrophils # (auto) 6.4 10 ^3/uL (1.6-8.6); Neutrophils % (auto) 61.9 % (37.0-80.0); Nucleated Red Blood Cells % 0.1 %; Red Cell Distribution Width 14.6 % (11.8-14.3); White Blood Cell 10.3 10^3/uL (4.4-10.8)
[2022-10-05 06:04] LABS: Potassium 3.6 mmol/L (3.5-5.1)
[2022-10-05] MEDS: GABAPENTIN 300 MG CAP PO SCH ×3 (06:06→21:59)
[2022-10-05] MEDS: HYDROcodone-ACET 5/325MG TAB PO PRN ×4 (06:24→18:57)
[2022-10-05 07:30] VITALS: PULSE 60; RESP 10; O2SAT 99
[2022-10-05] MEDS ORDERED: GABA-1250 PO (11:03)
[2022-10-05] MEDS ORDERED: AML5T PO (11:03)
[2022-10-05] MEDS: LISINOPRIL 20 MG TAB PO SCH (11:29)
[2022-10-05] MEDS: amLODIPine BESYLATE 5 MG TAB PO SCH (11:29)
[2022-10-05 11:50] VITALS: BP 162/68; PULSE 60; RESP 15; TEMP 98.1; O2SAT 98
[2022-10-05 17:00] VITALS: BP 157/62; PULSE 59; RESP 18; TEMP 98.2; O2SAT 100
[2022-10-05 18:18] VITALS: BP 162/68; TEMP 36.8
[2022-10-05 20:00] VITALS: PULSE 60; RESP 17
[2022-10-05] MEDS: hydrALAZINE HCL 20 MG/ML VL IV PRN (21:59)
[2022-10-05 22:00] VITALS: BP 160/69; PULSE 60; RESP 19; TEMP 98.6; O2SAT 97
[2022-10-06] MEDS: HYDROcodone-ACET 5/325MG TAB PO PRN ×2 (03:26→13:35)
[2022-10-06 05:00] VITALS: BP 133/58; PULSE 60; RESP 16; TEMP 98.9; O2SAT 97
[2022-10-06] MEDS: GABAPENTIN 300 MG CAP PO SCH (05:37)
[2022-10-06 08:00] VITALS: PULSE 63
[2022-10-06] MEDS: hydrALAZINE HCL 20 MG/ML VL IV PRN (08:19)
[2022-10-06 09:00] VITALS: BP 113/76; PULSE 60; RESP 20; TEMP 98; O2SAT 100
[2022-10-06] MEDS: LISINOPRIL 20 MG TAB PO SCH (09:15)
[2022-10-06] MEDS: amLODIPine BESYLATE 5 MG TAB PO SCH (09:15)
[2022-10-06 12:10] LABS: COVID19 ANTIGEN SOFIA FIA NEGATIVE (NEGATIVE)
[2022-10-06 13:00] VITALS: BP 128/48; PULSE 65; RESP 20; TEMP 97.8; O2SAT 98
[2022-10-06 13:49] VITALS: BP 128/48; PULSE 65; RESP 19; TEMP 97.8; O2SAT 98
== END 2022-10-06 14:47 | DRG 305 ==
LOC: ER 09:44 → EDBD 09:44 → TELE 11:39 → TELE-WESTW 10-05 11:15
PROVIDERS: ADMIT Internal Medicine Pulmonary Disease; ATTEND Internal Medicine Pulmonary Disease
DX: I16.0 Hypertensive urgency (principal); C91.10 Chronic lymphocytic leukemia of B-cell type not having achieved remission; J96.10 Chronic respiratory failure, unspecified whether with hypoxia or hypercapnia; R07.89 Other chest pain; F17.210 Nicotine dependence, cigarettes, uncomplicated; E78.00 Pure hypercholesterolemia, unspecified; I10 Essential (primary) hypertension; E10.9 Type 1 diabetes mellitus without complications; B02.9 Zoster without complications; J44.9 Chronic obstructive pulmonary disease, unspecified; Z82.49 Family history of ischemic heart disease and other diseases of the circulatory system; Z95.810 Presence of automatic (implantable) cardiac defibrillator; Z83.3 Family history of diabetes mellitus; Z85.46 Personal history of malignant neoplasm of prostate; Z88.1 Allergy status to other antibiotic agents; Z88.0 Allergy status to penicillin
CPT/HCPCS: 36415; 71045; 80048; 80053; 81001; 82962; 84484; 85025; 87040; 87077; 87186; 87426; 93005; 96374; G0378; J1815

== ENCOUNTER 2022-11-24 07:12 | Emergency (ER) | payer MEDICARE, MEDICAID ==
[~2022-11-24] VITALS: Ht 180.3 cm; Wt 77.2 kg
[~2022-11-24 07:12] MED LIST changes: -ACYC400T16 PO; +AML5T PO; -ATEN-60 PO; -CIPR-173 PO; -OLME40TA78 PO
[2022-11-24] MEDS ORDERED: SODIUM CHLORIDE 0.9% 1,000 ML IV ONE (08:00)
[2022-11-24 08:10] VITALS: PULSE 60; RESP 14; O2SAT 99
[2022-11-24 08:40] LABS: Basophils # (auto) 0 10 ^3/uL (0-0.2); Basophils % (auto) 0.3 % (0.0-2.0); Eosinophils # (auto) 0.2 10 ^3/uL (0-0.8); Hematocrit 38.8 % (41.0-53.0); Hemoglobin 12.7 g/dL (13.5-17.5); Lymphocytes # (auto) 2.8 10 ^3/uL (0.4-5.4); Lymphocytes % (auto) 32.3 % (10.0-50.0); Mean Corpuscular Hemoglobin 28.4 pg (28.0-32.0); Mean Corpuscular Hgb Conc. 32.7 g/dL (32.0-36.0); Mean Corpuscular Volume 86.6 fL (80.0-100.0); Monocytes # (auto) 0.5 10 ^3/uL (0-1.3); Monocytes % (auto) 5.6 % (0.0-12.0); Neutrophils # (auto) 5.3 10 ^3/uL (1.6-8.6); Neutrophils % (auto) 59.8 % (37.0-80.0); Nucleated Red Blood Cells % 0.1 %; Red Blood Cells 4.48 10^6/uL (4.5-5.90); Red Cell Distribution Width 16.4 % (11.8-14.3); White Blood Cell 8.8 10^3/uL (4.4-10.8)
[2022-11-24 08:55] LABS: Alanine Aminotransferase 28 U/L (7-40); Albumin 3.9 g/dL (3.2-4.8); Alkaline Phosphatase 164 U/L (46-116); Anion Gap 6 (5-15); Aspartate Aminotransferase 17 U/L (13-40); BUN/Creatinine Ratio 20.2 (10.0-20.0); Blood Urea Nitrogen 25 mg/dL (9-23); Calcium 9.6 mg/dL (8.5-10.1); Carbon Dioxide 29 mmol/L (20-30); Chloride 103 mmol/L (98-107); Glucose 157 mg/dL (74-106); Sodium 138 mmol/L (136-145)
[2022-11-24 08:56] LABS: Bilirubin, Total 0.5 mg/dL (0.2-1.0)
[2022-11-24 08:57] LABS: INR 1.07 (0.9-1.15); Partial Thromboplastin Time 29.1 SEC (24.5-34.5); Prothrombin Time 11.2 sec (9.3-11.8)
[2022-11-24] MEDS ORDERED: IOHEXOL 300 MG/ML 100ML BOTTLE IJ ONE (09:15)
[2022-11-24 09:16] LABS: Magnesium 1.8 mg/dL (1.6-2.6)
[2022-11-24 14:00] VITALS: BP 126/68; PULSE 60; RESP 10; O2SAT 99
[2022-11-24 14:33] LABS: Urine Bacteria NONE SEEN /hpf (None Seen); Urine Blood Negative /uL (Negative); Urine Clarity Clear (Clear); Urine Color STRAW (Yellow); Urine Protein, UAD 1+ (Negative); Urine Specific Gravity 1.046 (1.001-1.035); Urine Urobilinogen Normal (Negative); Urine WBC <1 /hpf (0 - 3)
== END 2022-11-24 16:35 | disposition home or self-care (01) ==
LOC: ER 07:12 → EDBD 07:12 → ER 16:35
DX: E07.9 Disorder of thyroid, unspecified (principal); R22.1 Localized swelling, mass and lump, neck; F03.90 Unspecified dementia, unspecified severity, without behavioral disturbance, psychotic disturbance, mood disturbance, and anxiety; I11.0 Hypertensive heart disease with heart failure; I50.9 Heart failure, unspecified; J44.9 Chronic obstructive pulmonary disease, unspecified; E78.5 Hyperlipidemia, unspecified; E11.9 Type 2 diabetes mellitus without complications; F17.210 Nicotine dependence, cigarettes, uncomplicated; Z95.0 Presence of cardiac pacemaker; Z79.899 Other long term (current) drug therapy; Z88.0 Allergy status to penicillin; Z88.1 Allergy status to other antibiotic agents
CPT/HCPCS: 36415; 71260; 76536; 80053; 81001; 83735; 84443; 85025; 85610; 85730; 96360; 96361; 99285; J7030; Q9967